=== PATIENT | male | born 1965 | race Caucasian/White ===

== ENCOUNTER 2020-04-30 16:48 | Emergency (ER) | payer OTHER, SELFPAY ==
[2020-04-30] VITALS (8 sets, daily range): BP systolic 148–187; BP diastolic 100–124; PULSE 71–109; RESP 12–25; TEMP 37.2; O2SAT 95–100; BMI 29.8
--- NOTE | 2020-04-30 16:57 | XRR_ITS ---
PROCEDURE INFORMATION: Exam: XR Chest, 1 View Exam date and time: 04/30/2020 6:52 PM Age: 54 years old Clinical indication: Pain; Patient HX: Chest pressure, lightheaded, shaky, dizzy, weak; Additional info: Cp TECHNIQUE: Imaging protocol: XR of the chest Views: 1 view. COMPARISON: No relevant prior studies available. FINDINGS: Lungs: Unremarkable. No consolidation. Pleural space: Unremarkable. No pleural effusion. No pneumothorax. Heart/Mediastinum: Unremarkable. No cardiomegaly. Bones/joints: Unremarkable. XR/XR chest 1V portable [id number] IMPRESSION: No acute findings.
--- NOTE | 2020-04-30 16:58 | ECG_ITS ---
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 Measurements Intervals [place] Rate: 75 P: 53 CT: 137 QRS: 52 QRSD: 95 T: 46 QT: 394 QTc: 442 Interpretive Statements SINUS RHYTHM LEFT VENTRICULAR HYPERTROPHY AND ST-T CHANGE [VOLTAGE CRITERIA PLUS ST/T ABNORMALITY] No previous ECG available for comparison Electronically Signed On 04-30-2020 19:48:16 LIFTS AND CRANES INSPECTOR by Mahendra Osorio M.D. [email or web address] [email or web address] [email or web address] hamilton hospital.[email or web address] Systems/store/[id number] f
[2020-04-30 17:22] LABS: Basophils % 0.4 %; Eosinophils % 0.3 %; Hematocrit 44.1 % (42.0-52.0); Hemoglobin 14.8 g/dL (11.7-16.6); Lymphocytes # 0.7 10^3/uL (0.8-4.8); Lymphocytes % 9.9 %; Mean Corpuscular HGB Conc 33.6 g/dL (30.0-36.0); Mean Corpuscular Hemoglobin 30.3 pg (28.0-34.0); Mean Corpuscular Volume 90.2 fL (80-94); Mean Platelet Volume 9.6 fL (7.4-10.4); Monocytes # 0.3 10^3/uL (0.2-0.9); Monocytes % 4.5 %; Neutrophils # 6.33 10^3/uL (1.8-7.7); Neutrophils % 84.6 %; Nucleated Red Blood Cells % 0 %; Platelet Count 286 10^3/cmm (130-400); Red Blood Count 4.89 10^6/uL (4.1-5.3); Red Cell Distribution Width 12.5 % (12.1-15.1); White Blood Count 7.5 10^3/uL (4.0-10.0)
[2020-04-30 17:37] LABS: Alanine Aminotransferase 32 U/L (0-41); Albumin Level 4.7 g/dL (3.5-5.2); Alkaline Phosphatase 44 IU/L (40-130); Anion Gap 13.5 (5-19); Aspartate Amino Transferase 37 U/L (0-40); Blood Urea Nitrogen 14 mg/dL (6-20); Calcium 9.8 mg/dL (8.5-10.5); Carbon Dioxide 28 mmol/L (22-29); Chloride 95 mmol/L (98-107); Globulin 2.8 g/dL (1.3-4.6); Glomerular Filtration Rate 88.6 mL/min (90-130); Glucose 147 mg/dL (65-115); Osmolality Calculated 279 mOsm/kg (285-295); Potassium 3.5 mmol/L (3.5-5.1); Sodium 133 mmol/L (136-145); Total Bilirubin 0.2 mg/dL (0.15-1.2); Total Protein 7.5 g/dL (6.6-8.7)
[2020-04-30 17:41] LABS: Troponin(5th) Baseline 6 ng/L (0-15)
--- NOTE | 2020-04-30 18:58 | ECG_ITS ---
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 Measurements Intervals [place] Rate: 68 P: 42 [place]: 123 QRS: 38 QRSD: 97 T: 43 QT: 424 QTc: 451 Interpretive Statements SINUS RHYTHM WITH SINUS ARRHYTHMIA POSSIBLE LEFT VENTRICULAR HYPERTROPHY [VOLTAGE CRITERIA PLUS LAE OR QRS WIDENING] Compared to ECG 04/30/2020 17:08:38 ST (T wave) deviation no longer present Electronically Signed On 04-30-2020 20:16:58 CLEARANCE COORDINATOR by Mahendra Osorio M.D. [email or web address] medical [email or web address] Officeuc west [facility].GPal/store/OM/[id number]
--- NOTE | 2020-04-30 19:12 | W.ED.CHESTPA ---
HPI - Chest Pain General: Chief Complaint: Chest Pain Stated Complaint: CHEST PRESSURE/DIZZY Time Seen by Provider: 04/30/20 18:47 History of Present Illness: MD complaint: chest pain Pertinent past history: other Onset (ago): hour(s) Timing of current episode: episodic Prior episodes: Yes (years ago) Onset: during rest Pain location: substernal and epigastric Pain radiation: none Quality: fullness Exacerbating factors: nothing Associated symptoms: Reports diaphoresis; Deny dyspnea, fever(s), leg edema, nausea, palpitations or vomiting Treatment prior to arrival: aspirin Review of Systems Const: Reports: diaphoresis; Denies: fever(s) Eyes: Denies: change in vision ENMT: Denies: odynophagia or sinus pain Card: Denies: chest pain, palpitations or irregular heart rhythm Resp: Denies: dyspnea, productive cough or non-productive cough GI: Denies: nausea or vomiting : Denies: difficulty urinating or hematuria Musc: Denies: neck pain or back pain Skin/Breast: Denies: rash Neuro: Denies: headache(s), dizziness or vertigo Physical Exam Const: GENERAL APPEARANCE: well developed ORIENTATION/CONSCIOUSNESS: Yes oriented to person, Yes oriented to place and Yes oriented to time HENMT: COMMON NORMALS: normocephalic, external ears normal and Normal external nose present HEAD & SCALP: normocephalic FACE & SINUS: normal facial exam NOSE: Normal external nose present and No nasal discharge present EXTERNAL EAR: Yes external ears normal Eye: COMMON NORMALS: Equal, round and reactive pupils present, EOMs intact bilaterally and conjunctivae normal EYELID: eyelids normal CONJUNCTIVA: Yes conjunctivae normal PUPIL: Yes Equal, round and reactive pupils present Neck/C-Spine: COMMON NORMALS: full ROM GENERAL: No tracheal deviation Chest: COMMONS NORMALS: normal inspection of the chest CHEST: No tenderness Resp: COMMON NORMALS: clear to auscultation bilaterally EFFORT & INSPECTION: No tachypneic, No respiratory distress, No retractions, No uses accessory muscles and No tracheal deviation AUSCULTATION: clear to auscultation bilaterally, no rhonchi, no wheezes and lung sounds not diminished Cardio: COMMON NORMALS: regular rate and regular rhythm RATE: regular rate RHYTHM: regular rhythm HEART SOUNDS: no murmurs PERIPHERAL PULSES: radial pulses present GI: INSPECTION: No abdominal distension AUSCULTATION: No Hyperactive bowel sounds present and No Hypoactive bowel sounds present PALPATION: No Guarding due to palpation present (GI) and No Rigid due to palpation PERCUSSION: no dullness to percussion and no tympanic to percussion Neuro: SENSORIUM/ORIENTATION: Yes oriented to person, Yes oriented to place and Yes oriented to time Psych: COMMON NORMALS: mental status grossly normal Skin: COMMON NORMALS: no rashes or lesions noted GENERAL SKIN EXAM: no rashes or lesions noted Course Vital Signs: Vital signs: Vital Signs Temperature 98.9 F 04/30/20 16:55 Pulse Rate 81 04/30/20 21:02 Respiratory Rate 18 04/30/20 21:02 Blood Pressure 176/105 04/30/20 21:02 Pulse Oximetry 95 04/30/20 21:02 MDM - Chest Pain MDM Narrative: Medical decision making narrative: 84-year-old male with epigastric fullness and discomfort with a episode of diaphoresis. He is not symptomatic currently. His white blood cell count 7.5. Hemoglobin is 15. First troponin is 6 and did not change at 2 hours. His EKG is a sinus rhythm with a normal axis, and probable mild LVH. There is a PVC. Chest x-ray is normal. He is hypertensive here. Current blood pressure is 148/109. He will be advised to take his pressure daily to twice daily and report numbers to his physician. Lab Data: Labs: Lab Results 04/30/20 04/30/20 04/30/20 Range/Units 17:10 17:10 17:10 WBC 7.5 (4.0-10.0) 10^3/ uL RBC 4.89 (4.1-5.3) 10^6/u L Hgb 14.8 (11.7-16.6) g/dL Hct 44.1 (42.0-52.0) % MCV 90.2 (80-94) fL MCH 30.3 (28.0-34.0) pg MCHC 33.6 (30.0-36.0) g/dL RDW 12.5 (12.1-15.1) % Plt Count 286 (130-400) 10^3/c mm MPV 9.6 (7.4-10.4) fL Neut % (Auto) 84.6 % Lymph % (Auto) 9.9 % [place] % (Auto) 4.5 % Eos % (Auto) 0.3 % Baso % (Auto) 0.4 % Neut # (Auto) 6.33 (1.8-7.7) 10^3/u L Lymph # (Auto) 0.7 L (0.8-4.8) 10^3/u L [place] # (Auto) 0.3 (0.2-0.9) 10^3/u L Eos # (Auto) 0.0 (0.0-0.8) 10^3/u L Baso # (Auto) 0.0 (0.0-0.1) 10^3/u L Nucleated RBC % (a uto) 0 % Nucleated RBCs # 0.0 /100WBC Sodium 133 L (136-145) mmol/L Potassium 3.5 (3.5-5.1) mmol/L Chloride 95 L (98-107) mmol/L Carbon Dioxide 28 (22-29) mmol/L Anion Gap 13.5 (5-19) BUN 14 (6-20) mg/dL Creatinine 0.9 (0.7-1.2) mg/dL GFR Calculation 88.6 L (90-130) mL/min Glucose 147 H (65-115) mg/dL Calculated Osmolal ity 279 L (285-295) mOsm/k g Calcium 9.8 (8.5-10.5) mg/dL Magnesium (1.7-2.3) mg/dL Total Bilirubin 0.2 (0.15-1.2) mg/dL AST 37 (0-40) U/L ALT 32 (0-41) U/L Alkaline Phosphata se 44 (40-130) IU/L Troponin T Baselin e 6 (0-15) ng/L Troponin T 120 Min [place] (0-15) ng/L Delta Troponin T (0-10) ABS# Total Protein 7.5 (6.6-8.7) g/dL Albumin 4.7 (3.5-5.2) g/dL Globulin 2.8 (1.3-4.6) g/dL 04/30/20 04/30/20 Range/Units 19:02 19:02 WBC (4.0-10.0) 10^3/ uL RBC (4.1-5.3) 10^6/u L Hgb (11.7-16.6) g/dL Hct (42.0-52.0) % MCV (80-94) fL MCH (28.0-34.0) pg MCHC (30.0-36.0) g/dL RDW (12.1-15.1) % Plt Count (130-400) 10^3/c mm MPV (7.4-10.4) fL Neut % (Auto) % Lymph % (Auto) % [place] % (Auto) % Eos % (Auto) % Baso % (Auto) % Neut # (Auto) (1.8-7.7) 10^3/u L Lymph # (Auto) (0.8-4.8) 10^3/u L [place] # (Auto) (0.2-0.9) 10^3/u L Eos # (Auto) (0.0-0.8) 10^3/u L Baso # (Auto) (0.0-0.1) 10^3/u L Nucleated RBC % (a uto) % Nucleated RBCs # /100WBC Sodium (136-145) mmol/L Potassium (3.5-5.1) mmol/L Chloride (98-107) mmol/L Carbon Dioxide (22-29) mmol/L Anion Gap (5-19) BUN (6-20) mg/dL Creatinine (0.7-1.2) mg/dL GFR Calculation (90-130) mL/min Glucose (65-115) mg/dL Calculated Osmolal ity (285-295) mOsm/k g Calcium (8.5-10.5) mg/dL Magnesium 2.2 (1.7-2.3) mg/dL Total Bilirubin (0.15-1.2) mg/dL AST (0-40) U/L ALT (0-41) U/L Alkaline Phosphata se (40-130) IU/L Troponin T Baselin e (0-15) ng/L Troponin T 120 Min [place] 6.00 (0-15) ng/L Delta Troponin T 0 (0-10) ABS# Total Protein (6.6-8.7) g/dL Albumin (3.5-5.2) g/dL Globulin (1.3-4.6) g/dL Discharge Plan Discharge Patient Disposition: Home Clinical Impression: Chest pain Qualifiers: Chest pain type: unspecified Qualified Code(s): R07.9 - Chest pain, unspecified Hypertension Qualifiers: Hypertension type: unspecified Qualified Code(s): I10 - Essential (primary) hypertension Condition: Stable Prescriptions: No Action omeprazole 20 mg capsule,delayed release(DR/EC) 20 mg PO BID RF: 0 Gas-X 80 mg Tablet,Chewable 160 mg PO PRN RF: 0 olmesartan 40 mg tablet 40 mg PO DAILY RF: 0 hydrochlorothiazide 12.5 mg tablet 12.5 mg PO DAILY RF: 0 Excedrin Tab 2 tab PO PRN RF: 0 aspirin 1 tab PO DAILY RF: 0 fexofenadine 1 tab PO DAILY RF: 0 meclizine 1 tab PO PRN RF: 0 Discharge Orders: Discharge Order (Routine); Ordered 04/30/20 Ordered By: Yury Canchola Referrals: Farrah Matson APN [Primary Care Provider] - 4-7 days Discharge Diet: Advance as tolerated Discharge Activity: Increase activity as tolerated Patient Instructions: Chest Pain (ED), Hypertension (ED) Activity Restrictions/Additional Instructions: Check your blood pressure twice daily, and report numbers to your physician. Your blood pressure may require treatment if it remains high. Return for worsening chest pain, shortness of breath, syncope or passing out, any other concerning symptoms. Coding Level of Care Code ED It Risk And Assurance Manager for Mike Fwd Exam Comprehensive
[2020-04-30 19:31] LABS: Troponin 5 2HR Delta 0 ABS# (0-10)
[2020-04-30 20:47] LABS: Magnesium 2.2 mg/dL (1.7-2.3)
== END 2020-04-30 21:03 | disposition home or self-care (01) ==
PROVIDERS: Emergency Medicine; Emergency Provider Emergency Medicine; PCP Nurse Practitioner Family
DX: R07.9 Chest pain, unspecified (principal); I10 Essential (primary) hypertension; Z79.82 Long term (current) use of aspirin
CPT/HCPCS: 12345; 36415; 71045; 80053; 83735; 84484; 85025; 93005; 99281; 99283

== ENCOUNTER 2020-07-20 12:39 | Outpatient (CLI) | payer OTHER, SELFPAY ==
--- NOTE | 2020-07-20 12:45 | ECG_ITS ---
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 Interpretive Statements NAME OF STUDY: TREADMILL STRESS ECHOCARDIOGRAM INDICATION: Chest Pain PROCEDURE: At the baseline, the patient's blood pressure was 152/90 with a heart rate of 84. The baseline electrocardiogram showed normal sinus rhythm with normal ST-Ts.. The patient exercised for 6 minutes and 55 seconds on a standard Rudy protocol. Patient attained a maximum heart rate of 160 beats per minute(95% of the maximum predicted heart rate) with a blood pressure at the peak exercise of 199/100 mm Hg. The EKG at the peak exercise revealed no significant changes. Patient did not have any chest pain or any significant EKG changes with the exercise During the recovery phase, there were no new changes. Blood pressure at the end of the recovery phase was 124/84 mm Hg with a heart rate of 96 per minute. Echocardiographic pictures were taken at the baseline, immediately following the peak exercise and during the recovery phase. CONCLUSION: 1. Normal EKG response to treadmill exercise 2. No exercise-induced chest pain or cardiac arrhythmia. Hypertensive response to exercise 3. Fair exercise tolerance, attained a maximum of 1.2 METs 4. Please see separate report for the echocardiographic response to exercise. Electronically Signed On 07-29-2020 9:45:38 LIEUTENANT SHIFT SUPERVISOR by Hailey Alexander M.D. [id number]
[2020-07-20 12:47] VITALS: BMI 27.6
[2020-07-20 13:29] VITALS: BP 124/84; PULSE 96
--- NOTE | 2020-07-20 13:45 | USCV_ITS ---
Stress Echo Jesus Malone Age: 54 Gender: M : 1965 Exam Date: 07/20/2020 13:03 Ordering Phys: Hailey Alexander MD ([email or web address]) Technologist: Anatoliy Cummings [place] [facility] [place]: chest pain Rhythm: Sinus Patient History: Chest pain Cardiac Medications: Medications in past 24 hours: Contrast: Stress Results Protocol: Rudy Total dose(mL): Exercise Duration (min:sec): 6:55 METS: 10.2 Resting HR: 84 Resting BP: 152 / 90 Peak HR: 160 Peak BP: 199 / 102 Max Predicted HR: 168 95 % Max Predicted HR Target HR: 143 Double Product: 00154 Stress Summary: The patient's target heart rate was achieved BP Response: Normal Reason for Termination: General/leg fatigue Cardiac Symptoms: None ECG Analysis Resting ECG: Please see separate report Stress ECG: Please see separate report Arrhythmia: Please see separate report MEASUREMENTS (Male/Female) Normal Values FINDINGS To nuclear was of normal size. Mild concentric left renal hypertrophy. Segmental wall motion analysis revealing no gross wall motion normalities. Aortic root was of normal size. The aortic and the mitral valve were found to have no significant stenosis. With the peak exercise, there was good augmentation of all the segments with no exercise-induced wall motion normalities. During the recovery phase, there was no new wall motion normalities. CONCLUSIONS Normal echocardiogram response to treadmill exercise. No significant coronary ischemia, based on the above findings Dr Hailey Alexander MD FAC (Electronically Signed) Final Date: 21 July 2020 09:48 S
== END 2020-07-20 12:40 | disposition home or self-care (01) ==
PROVIDERS: PCP Nurse Practitioner Family; Visit Provider Internal Medicine Cardiovascular Disease
DX: R07.89 Other chest pain (principal)
CPT/HCPCS: 93017; 93350

== ENCOUNTER 2021-09-14 14:20 | Inpatient (IN) | payer OTHER, SELFPAY ==
[2021-09-14] VITALS (9 sets, daily range): BP systolic 131–204; BP diastolic 93–126; PULSE 65–95; RESP 14–25; TEMP 36.4–36.6; O2SAT 93–100; BMI 27.9
--- NOTE | 2021-09-14 14:51 | XR_ITS ---
WS: [id number] Exam: XR chest 1V portable [id number] Date/Time of Exam: 09/14/2021 3:01 PM Reason For Exam: cp Comparison 04/30/2020. Findings: The lungs are clear and fully expanded. Costophrenic angles are sharp. No infiltrates. Bronchovascula r relief appears normal. Cardiac silhouette is unremarkable. Bony elements are intact. XR/XR chest 1V portable [id number] IMPRESSION: Unremarkable chest radiograph.
--- NOTE | 2021-09-14 14:52 | ECG_ITS ---
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 Measurements Intervals [place] Rate: 64 P: 68 ME: 129 QRS: 74 QRSD: 102 T: 77 QT: 434 QTc: 449 Interpretive Statements SINUS RHYTHM LEFT VENTRICULAR HYPERTROPHY AND ST-T CHANGE [VOLTAGE CRITERIA PLUS ST/T ABNORMALITY] Compared to ECG 04/30/2020 19:11:37 ST (T wave) deviation now present Sinus arrhythmia no longer present Electronically Signed On 09-14-2021 17:10:38 CDT by Gaston Kruse M.D. [email or web address] [email or web address] county memorial hospitalTouchBase Technologiesriverview health institute.Cliptone/store/[id number]
--- NOTE | 2021-09-14 15:10 | ED_ITS ---
Documented by User: CHRISTINA Almazan 09/15/21 11:55 HPI - Chest Pain General: Chief Complaint: Chest Pain Stated Complaint: Chest Pain Time Seen by Provider: 09/14/21 14:51 History of Present Illness: Patient is a 55-year-old male comes to the ED with chest pain. Chest pain occurred around 10 AM today while at rest. He had just finished eating some breakfast and approximately 30 minutes later he developed the chest pain. He described it as a burning and aching pain that was in the middle of his chest. He took some Gas-X tablets and belched a little bit and his symptoms improved and about a half an hour. Then a couple hours later he had another episode of chest pain at rest, but this time he had not eaten anything recently preceding the symptoms. Pain lasted for about an hour. Chest pain resolved before coming to the ED. pt took dose of excedrin this morming. He has had chest pain like this before, but this time it just lasted longer. Has a history of acid reflux and takes omeprazole 20 mg daily. he saw a food and beverage checker a year ago and had a stress test done and everything came back normal. Associated symptoms: Deny abdominal pain, dyspnea, fever(s), nausea, palpitations or vomiting Review of Systems Const: Denies: fever(s), chills or fatigue Eyes: Denies: change in vision or eye discomfort ENMT: Denies: throat pain, odynophagia, nasal discharge or nasal congestion Card: Reports: chest pain; Denies: palpitations, edema, swelling of feet/ankles, dyspnea on exertion or orthopnea Resp: Denies: dyspnea, productive cough or non-productive cough GI: Denies: abdominal pain, nausea, vomiting, diarrhea, constipation or hematochezia : Denies: flank pain, difficulty urinating, dysuria or hematuria Musc: Denies: neck pain, back pain or extremity swelling Skin/Breast: Denies: rash or new lesions Neuro: Denies: headache(s), numbness in extremities or weakness in extremities PFSH ED PFSH: Medical History Atypical chest pain The EKG done today, 06/23/2019 revealed sinus rhythm with some nonspecific ST-T changes in the inferolateral leads. Otherwise unremarkable. Benign essential HTN History of hypertension Hypokalemia Hypokalemia Near syncope Vertigo Family History Father CAD (coronary artery disease) Grandmother CAD (coronary artery disease) Dementia Diabetes Grandfather Cancer Son Diabetes Denies family history of Clotting disorder Chronic kidney disease (CKD) Suicide Anesthesia complication Bleeding disorder Lung disease Stroke Social History Smoking and tobacco status: never smoked Alcohol intake: current Alcohol intake frequency: holidays/special occasions only Alcohol type: beer Lives independently: Yes Marital status: Physical Exam Const: COMMON NORMALS: no acute distress, patient oriented x3 and alert GENERAL APPEARANCE: cooperative and comfortable HENMT: COMMON NORMALS: normocephalic HEAD & SCALP: normocephalic MOUTH: Normal oral and palatal mucosa present THROAT: posterior oropharynx normal and uvula midline Eye: GENERAL EYE: appearance normal, both eyes and all related structures Neck/C-Spine: COMMON NORMALS: supple GENERAL: Yes normal visual inspection Resp: COMMON NORMALS: normal respiratory effort, No retractions, No use of accessory muscles and clear to auscultation bilaterally AUSCULTATION: clear to auscultation bilaterally Cardio: COMMON NORMALS: regular rate, regular rhythm, S1 normal heart sound present, S2 normal heart sound present, No gallops present (Cardio), No clicks present (Cardio), No murmurs present (Cardio) and Peripheral pulses 2+ throughout RATE: regular rate RHYTHM: regular rhythm HEART SOUNDS: S1 normal heart sound present and S2 normal heart sound present PERIPHERAL PULSES: Peripheral pulses 2+ throughout GI: COMMON NORMALS: Normal to inspection, nondistended, normoactive bowel sounds present, Soft to palpation, non-tender and no masses PALPATION: Yes Soft to palpation : COMMON NORMALS: Yes no CVA tenderness BLADDER/KIDNEY EXAM: Yes no CVA tenderness Back/Pelvis: COMMON NORMALS: no CVA tenderness Extremity: COMMON NORMALS: normal to inspection and no pedal edema Neuro: COMMON NORMALS: patient oriented x3 and moves all extremities SENSORIUM/ORIENTATION: Yes alert Skin: GENERAL SKIN EXAM: dry skin Course Vital Signs: Vital signs: Vital Signs Temperature 98.2 F 09/17/21 11:40 Pulse Rate 62 09/17/21 12:00 Respiratory Rate 14 09/17/21 12:00 Blood Pressure 150/90 09/17/21 12:00 Pulse Oximetry 94 09/17/21 12:00 [facility] - Chest Pain Medical Decision Making Received patient from CHRISTINA Almazan patient episode of anxiety and palpitations around 1750. EKG was done showed PVCs some changes and then repeat rhythm strip showed that rhythm is back to normal. Patient was given Ativan 1 mg IV to help with anxiety that he was complained about. Reviewed EKG and patient's signs sym ptoms vitals with Dr. Delacruz 0203. Patient had an elevated troponin baseline troponin 36. 2-hour troponin of 50.74. Patient diagnosed with non-STEMI GA. Patient will be admitted and placed on observation. Lab Data I reviewed the patient's lab results. : 09/17/21 03:33 09/17/21 03:33 Radiology Impressions Chest X-Ray 09/14/21 14:51 IMPRESSION: Unremarkable chest radiograph. Laboratory Results WBC 9.2 10^3/uL (4.0-10.0) 09/15/21 03:39 RBC 4.91 10^6/uL (4.1-5.3) 09/15/21 03:39 Hgb 15.0 g/dL (11.7-16.6) 09/15/21 03:39 Hct 44.4 % (42.0-52.0) 09/15/21 03:39 MCV 90.4 fl (80-94) 09/15/21 03:39 MCH 30.5 pg (28.0-34.0) 09/15/21 03:39 MCHC 33.8 g/dL (30.0-36.0) 09/15/21 03:39 RDW 12.2 % (12.1-15.1) 09/15/21 03:39 Plt Count 296 10^3/cmm (130-400) 09/15/21 03:39 MPV 9.9 fL (7.4-10.4) 09/15/21 03:39 Neut % (Auto) 72.8 % 09/15/21 03:39 Lymph % (Auto) 16.7 % 09/15/21 03:39 Hickman % (Auto) 9.4 % 09/15/21 03:39 Eos % (Auto) 0.4 % 09/15/21 03:39 Baso % (Auto) 0.4 % 09/15/21 03:39 Neut # (Auto) 6.72 10^3/uL (1.8-7.7) 09/15/21 03:39 Lymph # (Auto) 1.5 10^3/uL (0.8-4.8) 09/15/21 03:39 Hickman # (Auto) 0.9 10^3/uL (0.2-0.9) 09/15/21 03:39 Eos # (Auto) 0.0 10^3/uL (0.0-0.8) 09/15/21 03:39 Baso # (Auto) 0.0 10^3/uL (0.0-0.1) 09/15/21 03:39 Nucleated RBC % (auto) 0 % 09/15/21 03:39 Nucleated RBCs # 0.0 /100WBC 09/15/21 03:39 Sodium 136 mmol/L (136-145) 09/15/21 03:39 Potassium 3.7 mmol/L (3.5-5.1) 09/15/21 03:39 Chloride 98 mmol/L (98-107) 09/15/21 03:39 Carbon Dioxide 26 mmol/L (22-29) 09/15/21 03:39 Anion Gap 15.7 (5-19) 09/15/21 03:39 BUN 11 mg/dL (6-20) 09/15/21 03:39 Creatinine 0.9 mg/dL (0.7-1.2) 09/15/21 03:39 GFR Calculation 88.3 mL/min (90-130) L 09/15/21 03:39 Glucose 97 mg/dL (65-115) 09/15/21 03:39 Calculated Osmolality 281 mOsm/kg (285-295) L 09/15/21 03:39 Calcium 10.2 mg/dL (8.5-10.5) 09/15/21 03:39 Magnesium 2.0 mg/dL (1.7-2.3) 09/14/21 21:59 Total Bilirubin 0.7 mg/dL (0.15-1.2) 09/15/21 03:39 AST 102 U/L (0-40) H 09/15/21 03:39 ALT 30 U/L (0-41) 09/15/21 03:39 Alkaline Phosphatase 46 IU/L (40-130) 09/15/21 03:39 Troponin T Baseline 36 ng/L (0-15) H 09/14/21 15:55 Troponin T 120 Minute 50.74 ng/L (0-15) H 09/14/21 17:50 Delta Troponin T 14.74 ABS# (0-10) H* 09/14/21 17:50 Troponin T Hi Sens 6Hr 178.4 ng/L (0-15) H 09/14/21 21:59 Troponin T Hi Sens 6Hr Delta 142.4 ng/L (0-12) H* 09/14/21 21:59 NT-Pro-B Natriuret Pep 98 pg/mL (0-125) 09/14/21 15:55 Total Protein 7.2 g/dL (6.6-8.7) 09/15/21 03:39 Albumin 4.6 g/dL (3.5-5.2) 09/15/21 03:39 Globulin 2.6 g/dL (1.3-4.6) 09/15/21 03:39 Triglycerides 102 mg/dL (0-150) 09/14/21 21:59 Cholesterol 248 mg/dL (0-200) H 09/14/21 21:59 LDL Cholesterol, Calc 151 mg/dL (50-129) H 09/14/21 21:59 HDL Cholesterol 77 mg/dL (60-100) 09/14/21 21:59 LDL/HDL Ratio 1.96 RATIO (0.00-3.22) 09/14/21 21:59 Cholesterol/HDL Ratio 3.22 mg/dL (1.0-5.00) 09/14/21 21:59 Lipase 33 U/L (13-60) 09/14/21 15:55 TSH 1.05 uIU/mL (0.27-4.20) 09/14/21 21:59 EKG Data EKG 1: EKG interpretation date: 09/14/21 EKG interpretation time: 14:43 Interpretation: Sinus rhythm, 61 bpm, no ST segment elevation or depression seen. EKG 2: EKG interpretation date: 09/14/21 EKG interpretation time: 16:43 Interpretation: Sinus rhythm, 67 bpm, moderate ST depression noted in leads V3 and V4. Dr. Juares reviewed EKG. Discharge Plan Discharge Patient Disposition: Placed in Observation Admit Provider: Gurdeep Hernandez Clinical Impression: Non-ST elevation (NSTEMI) myocardial infarction, Chest pain Discharge Diet: Cardiac Discharge Activity: Resume usual activity Sign Out Sign Out Data: Patient Sign Out occurred on 09/14/21 at 19:36. Patient's care was discussed, and care was transferred from to Alvaro Delacruz MD. Post-Handoff Eval: Patient was discussed with CHRISTINA Almazan. I received patient care handoff and personally saw and evaluated patient regarding performed panda portions of E/M. I reviewed documentation and agree as above. Somewhat atypical history however given delta troponin patient's records before further cardiac testing. 10 point review systems was negative except as noted above. I agree with physical exam documentation. ASA given. Labs, imaging, and EKGs reviewed and personally interpretted by me. I discussed results of ED evaluation with patient and he was agreeable to admission. Case discussed with Dr Hernandez of the hospital service who was agreeable to the patient. Patient made it without clinical duration or significant events. Alvaro Delacruz MD Emergency Medicine Coding Level of Care Code ED Ambulance Driver Paramedic for Chg Fwd Exam Comprehensive Documented by User: AJIT Albrecht 09/14/21 18:14 HPI - Chest Pain General: Chief Complaint: Chest Pain Stated Complaint: Chest Pain Time Seen by Provider: 09/14/21 14:51 PFSH ED PFSH: Medical History Atypical chest pain The EKG done today, 06/23/2019 revealed sinus rhythm with some nonspecific ST-T changes in the inferolateral leads. Otherwise unremarkable. Benign essential HTN History of hypertension Hypokalemia Hypokalemia Near syncope Vertigo Family History Father CAD (coronary artery disease) Grandmother CAD (coronary artery disease) Dementia Diabetes Grandfather Cancer Son Diabetes Denies family history of Clotting disorder Chronic kidney disease (CKD) Suicide Anesthesia complication Bleeding disorder Lung disease Stroke Social History Smoking and tobacco status: never smoked Alcohol intake: current Alcohol intake frequency: holidays/special occasions only Alcohol type: beer Lives independently: Yes Marital status: Course Vital Signs: Vital signs: Vital Signs Temperature 98.2 F 09/17/21 11:40 Pulse Rate 62 09/17/21 12:00 Respiratory Rate 14 09/17/21 12:00 Blood Pressure 150/90 09/17/21 12:00 Pulse Oximetry 94 09/17/21 12:00 MDM - Chest Pain Medical Decision Making Received patient from CHRISTINA Almazan patient episode of anxiety and palpitations around 1750. EKG was done showed PVCs some changes and then repeat rhythm strip showed that rhythm is back to normal. Patient was given Ativan 1 mg IV to help with anxiety that he was complained about. Reviewed EKG and patient's signs symptoms vitals with Dr. Delacruz [id number]. Lab Data : 09/17/21 03:33 09/17/21 03:33 Radiology Impressions Chest X-Ray 09/14/21 14:51 IMPRESSION: Unremarkable chest radiograph. Laboratory Results WBC 9.2 10^3/uL (4.0-10.0) 09/15/21 03:39 RBC 4.91 10^6/uL (4.1-5.3) 09/15/21 03:39 Hgb 15.0 g/dL (11.7-16.6) 09/15/21 03:39 Hct 44.4 % (42.0-52.0) 09/15/21 03:39 MCV 90.4 fl (80-94) 09/15/21 03:39 MCH 30.5 pg (28.0-34.0) 09/15/21 03:39 MCHC 33.8 g/dL (30.0-36.0) 09/15/21 03:39 RDW 12.2 % (12.1-15.1) 09/15/21 03:39 Plt Count 296 10^3/cmm (130-400) 09/15/21 03:39 MPV 9.9 fL (7.4-10.4) 09/15/21 03:39 Neut % (Auto) 72.8 % 09/15/21 03:39 Lymph % (Auto) 16.7 % 09/15/21 03:39 Hickman % (Auto) 9.4 % 09/15/21 03:39 Eos % (Auto) 0.4 % 09/15/21 03:39 Baso % (Auto) 0.4 % 09/15/21 03:39 Neut # (Auto) 6.72 10^3/uL (1.8-7.7) 09/15/21 03:39 Lymph # (Auto) 1.5 10^3/uL (0.8-4.8) 09/15/21 03:39 Hickman # (Auto) 0.9 10^3/uL (0.2-0.9) 09/15/21 03:39 Eos # (Auto) 0.0 10^3/uL (0.0-0.8) 09/15/21 03:39 Baso # (Auto) 0.0 10^3/uL (0.0-0.1) 09/15/21 03:39 Nucleated RBC % (auto) 0 % 09/15/21 03:39 Nucleated RBCs # 0.0 /100WBC 09/15/21 03:39 Sodium 136 mmol/L (136-145) 09/15/21 03:39 Potassium 3.7 mmol/L (3.5-5.1) 09/15/21 03:39 Chloride 98 mmol/L (98-107) 09/15/21 03:39 Carbon Dioxide 26 mmol/L (22-29) 09/15/21 03:39 Anion Gap 15.7 (5-19) 09/15/21 03:39 BUN 11 mg/dL (6-20) 09/15/21 03:39 Creatinine 0.9 mg/dL (0.7-1.2) 09/15/21 03:39 GFR Calculation 88.3 mL/min (90-130) L 09/15/21 03:39 Glucose 97 mg/dL (65-115) 09/15/21 03:39 Calculated Osmolality 281 mOsm/kg (285-295) L 09/15/21 03:39 Calcium 10.2 mg/dL (8.5-10.5) 09/15/21 03:39 Magnesium 2.0 mg/dL (1.7-2.3) 09/14/21 21:59 Total Bilirubin 0.7 mg/dL (0.15-1.2) 09/15/21 03:39 AST 102 U/L (0-40) H 09/15/21 03:39 ALT 30 U/L (0-41) 09/15/21 03:39 Alkaline Phosphatase 46 IU/L (40-130) 09/15/21 03:39 Troponin T Baseline 36 ng/L (0-15) H 09/14/21 15:55 Troponin T 120 Minute 50.74 ng/L (0-15) H 09/14/21 17:50 Delta Troponin T 14.74 ABS# (0-10) H* 09/14/21 17:50 Troponin T Hi Sens 6Hr 178.4 ng/L (0-15) H 09/14/21 21:59 Troponin T Hi Sens 6Hr Delta 142.4 ng/L (0-12) H* 09/14/21 21:59 NT-Pro-B Natriuret Pep 98 pg/mL (0-125) 09/14/21 15:55 Total Protein 7.2 g/dL (6.6-8.7) 09/15/21 03:39 Albumin 4.6 g/dL (3.5-5.2) 09/15/21 03:39 Globulin 2.6 g/dL (1.3-4.6) 09/15/21 03:39 Triglycerides 102 mg/dL (0-150) 09/14/21 21:59 Cholesterol 248 mg/dL (0-200) H 09/14/21 21:59 LDL Cholesterol, Calc 151 mg/dL (50-129) H 09/14/21 21:59 HDL Cholesterol 77 mg/dL (60-100) 09/14/21 21:59 LDL/HDL Ratio 1.96 RATIO (0.00-3.22) 09/14/21 21:59 Cholesterol/HDL Ratio 3.22 mg/dL (1.0-5.00) 09/14/21 21:59 Lipase 33 U/L (13-60) 09/14/21 15:55 TSH 1.05 uIU/mL (0.27-4.20) 09/14/21 21:59 Discharge Plan Discharge Patient Disposition: Placed in Observation Admit Provider: Gurdeep Hernandez Clinical Impression: Non-ST elevation (NSTEMI) myocardial infarction, Chest pain Discharge Diet: Cardiac Discharge Activity: Resume usual activity Sign Out Sign Out Data: Patient Sign Out occurred on 09/14/21 at 19:36. Patient's care was discussed, and care was transferred from to Alvaro Delacruz MD. Post-Handoff Eval: Patient was discussed with CHRISTINA Almazan. I received patient care handoff and personally saw and evaluated patient regarding performed panda portions of E/M. I reviewed documentation and agree as above. Somewhat atypical history however given delta troponin patient's records before further cardiac testing. 10 point review systems was negative except as noted above. I agree with physical exam documentation. ASA given. Labs, imaging, and EKGs reviewed and personally interpretted by me. I discussed results of ED evaluation with patient and he was agreeable to admission. Case discussed with Dr Hernandez of the hospital service who was agreeable to the patient. Patient made it without clinical duration or significant events. Alvaro Delacruz MD Emergency Medicine Coding Level of Care Code ED Ambulance Driver Paramedic for Chg Fwd Exam Comprehensive Documented by User: Alvaro Delacruz MD 09/20/21 18:28 HPI - Chest Pain General: Chief Complaint: Chest Pain Stated Complaint: Chest Pain Time Seen by Provider: 09/14/21 14:51 History of Present Illness: Onset (ago): hour(s) Timing of current episode: episodic Onset: during rest Pain location: substernal Severity: moderate Quality: aching [facility] ED PFSH: Medical History Atypical chest pain The EKG done today, 06/23/2019 revealed sinus rhythm with some nonspecific ST-T changes in the inferolateral leads. Otherwise unremarkable. Benign essential HTN History of hypertension Hypokalemia Hypokalemia Near syncope Vertigo Family History Father CAD (coronary artery disease) Grandmother CAD (coronary artery disease) Dementia Diabetes Grandfather Cancer Son Diabetes Denies family history of Clotting disorder Chronic kidney disease (CKD) Suicide Anesthesia complication Bleeding disorder Lung disease Stroke Social History Smoking and tobacco status: never smoked Alcohol intake: current Alcohol intake frequency: holidays/special occasions only Alcohol type: beer Lives independently: Yes Marital status: Course Vital Signs: Vital signs: Vital Signs Temperature 98.2 F 09/17/21 11:40 Pulse Rate 62 09/17/21 12:00 Respiratory Rate 14 09/17/21 12:00 Blood Pressure 150/90 09/17/21 12:00 Pulse Oximetry 94 09/17/21 12:00 MDM - Chest Pain Lab Data : 09/17/21 03:33 09/17/21 03:33 Radiology Impressions Chest X-Ray 09/14/21 14:51 IMPRESSION: Unremarkable chest radiograph. Laboratory Results WBC 9.2 10^3/uL (4.0-10.0) 09/15/21 03:39 RBC 4.91 10^6/uL (4.1-5.3) 09/15/21 03:39 Hgb 15.0 g/dL (11.7-16.6) 09/15/21 03:39 Hct 44.4 % (42.0-52.0) 09/15/21 03:39 MCV 90.4 fl (80-94) 09/15/21 03:39 MCH 30.5 pg (28.0-34.0) 09/15/21 03:39 MCHC 33.8 g/dL (30.0-36.0) 09/15/21 03:39 RDW 12.2 % (12.1-15.1) 09/15/21 03:39 Plt Count 296 10^3/cmm (130-400) 09/15/21 03:39 MPV 9.9 fL (7.4-10.4) 09/15/21 03:39 Neut % (Auto) 72.8 % 09/15/21 03:39 Lymph % (Auto) 16.7 % 09/15/21 03:39 Hickman % (Auto) 9.4 % 09/15/21 03:39 Eos % (Auto) 0.4 % 09/15/21 03:39 Baso % (Auto) 0.4 % 09/15/21 03:39 Neut # (Auto) 6.72 10^3/uL (1.8-7.7) 09/15/21 03:39 Lymph # (Auto) 1.5 10^3/uL (0.8-4.8) 09/15/21 03:39 Hickman # (Auto) 0.9 10^3/uL (0.2-0.9) 09/15/21 03:39 Eos # (Auto) 0.0 10^3/uL (0.0-0.8) 09/15/21 03:39 Baso # (Auto) 0.0 10^3/uL (0.0-0.1) 09/15/21 03:39 Nucleated RBC % (auto) 0 % 09/15/21 03:39 Nucleated RBCs # 0.0 /100WBC 09/15/21 03:39 Sodium 136 mmol/L (136-145) 09/15/21 03:39 Potassium 3.7 mmol/L (3.5-5.1) 09/15/21 03:39 Chloride 98 mmol/L (98-107) 09/15/21 03:39 Carbon Dioxide 26 mmol/L (22-29) 09/15/21 03:39 Anion Gap 15.7 (5-19) 09/15/21 03:39 BUN 11 mg/dL (6-20) 09/15/21 03:39 Creatinine 0.9 mg/dL (0.7-1.2) 09/15/21 03:39 GFR Calculation 88.3 mL/min (90-130) L 09/15/21 03:39 Glucose 97 mg/dL (65-115) 09/15/21 03:39 Calculated Osmolality 281 mOsm/kg (285-295) L 09/15/21 03:39 Calcium 10.2 mg/dL (8.5-10.5) 09/15/21 03:39 Magnesium 2.0 mg/dL (1.7-2.3) 09/14/21 21:59 Total Bilirubin 0.7 mg/dL (0.15-1.2) 09/15/21 03:39 AST 102 U/L (0-40) H 09/15/21 03:39 ALT 30 U/L (0-41) 09/15/21 03:39 Alkaline Phosphatase 46 IU/L (40-130) 09/15/21 03:39 Troponin T Baseline 36 ng/L (0-15) H 09/14/21 15:55 Troponin T 120 Minute 50.74 ng/L (0-15) H 09/14/21 17:50 Delta Troponin T 14.74 ABS# (0-10) H* 09/14/21 17:50 Troponin T Hi Sens 6Hr 178.4 ng/L (0-15) H 09/14/21 21:59 Troponin T Hi Sens 6Hr Delta 142.4 ng/L (0-12) H* 09/14/21 21:59 NT-Pro-B Natriuret Pep 98 pg/mL (0-125) 09/14/21 15:55 Total Protein 7.2 g/dL (6.6-8.7) 09/15/21 03:39 Albumin 4.6 g/dL (3.5-5.2) 09/15/21 03:39 Globulin 2.6 g/dL (1.3-4.6) 09/15/21 03:39 Triglycerides 102 mg/dL (0-150) 09/14/21 21:59 Cholesterol 248 mg/dL (0-200) H 09/14/21 21:59 LDL Cholesterol, Calc 151 mg/dL (50-129) H 09/14/21 21:59 HDL Cholesterol 77 mg/dL (60-100) 09/14/21 21:59 LDL/HDL Ratio 1.96 RATIO (0.00-3.22) 09/14/21 21: Cholesterol/HDL Ratio 3.22 mg/dL (1.0-5.00) 09/14/21 21:59 Lipase 33 U/L (13-60) 09/14/21 15:55 TSH 1.05 uIU/mL (0.27-4.20) 09/14/21 21:59 Discharge Plan Discharge Patient Disposition: Placed in Observation Admit Provider: Gurdeep Hernandez Clinical Impression: Non-ST elevation (NSTEMI) myocardial infarction, Chest pain Discharge Diet: Cardiac Discharge Activity: Resume usual activity Sign Out Sign Out Data: Patient Sign Out occurred on 09/14/21 at 19:36. Patient's care was discussed, and care was transferred from to Alvaro Delacruz MD. Post-Handoff Eval: Patient was discussed with CHRISTINA Almazan. I received patient care handoff and personally saw and evaluated patient regarding performed panda portions of E/M. I reviewed documentation and agree as above. Somewhat atypical history however given delta troponin patient's records before further cardiac testing. 10 point review systems was negative except as noted above. I agree with physical exam documentation. ASA given. Labs, imaging, and EKGs reviewed and personally int erpretted by me. I discussed results of ED evaluation with patient and he was agreeable to admission. Case discussed with Dr Hernandez of the hospital service who was agreeable to the patient. Patient made it without clinical duration or significant events. Alvaro Delacruz MD Emergency Medicine Coding Level of Care Code ED Ambulance Driver Paramedic for Chg Fwd Exam Comprehensive
[2021-09-14 16:17] LABS: Basophils % 0.3 %; Eosinophils % 0.1 %; Hematocrit 45.9 % (42.0-52.0); Hemoglobin 15.4 g/dL (11.7-16.6); Lymphocytes # 1.3 10^3/uL (0.8-4.8); Lymphocytes % 13.4 %; Mean Corpuscular HGB Conc 33.6 g/dL (30.0-36.0); Mean Corpuscular Hemoglobin 30.2 pg (28.0-34.0); Monocytes # 0.5 10^3/uL (0.2-0.9); Neutrophils # 7.91 10^3/uL (1.8-7.7); Neutrophils % 80.9 %; Nucleated Red Blood Cells % 0 %; Platelet Count 288 10^3/cmm (130-400); White Blood Count 9.8 10^3/uL (4.0-10.0)
[2021-09-14 16:29] LABS: Troponin(5th) Baseline 36 ng/L (0-15)
[2021-09-14 16:36] LABS: Alanine Aminotransferase 24 U/L (0-41); Albumin Level 4.9 g/dL (3.5-5.2); Alkaline Phosphatase 49 IU/L (40-130); Anion Gap 13.7 (5-19); Aspartate Amino Transferase 23 U/L (0-40); Blood Urea Nitrogen 13 mg/dL (6-20); Calcium 10.3 mg/dL (8.5-10.5); Carbon Dioxide 26 mmol/L (22-29); Chloride 95 mmol/L (98-107); Globulin 2.8 g/dL (1.3-4.6); Glomerular Filtration Rate 78.2 mL/min (90-130); Glucose 131 mg/dL (65-115); Lipase 33 U/L (13-60); NT Pro B Type Natriuretic Pept 98 pg/mL (0-125); Osmolality Calculated 274 mOsm/kg (285-295); Potassium 3.7 mmol/L (3.5-5.1); Sodium 131 mmol/L (136-145); Total Bilirubin 0.5 mg/dL (0.15-1.2); Total Protein 7.7 g/dL (6.6-8.7)
--- NOTE | 2021-09-14 16:52 | ECG_ITS ---
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 Measurements Intervals [place] Rate: 67 P: 70 MI: 127 QRS: 78 QRSD: 101 T: 53 QT: 430 QTc: 455 Interpretive Statements SINUS RHYTHM POSSIBLE LEFT VENTRICULAR HYPERTROPHY [VOLTAGE CRITERIA PLUS LAE OR QRS WIDENING] MODERATE ST DEPRESSION [0.05+ mV ST DEPRESSION] Compared to ECG 09/14/2021 15:14:58 No significant changes Electronically Signed On 09-14-2021 17:19:44 CDT by Gaston Kruse M.D. [id number]
[2021-09-14] MEDS: lidocaine 2% viscous 15 ML, aluminum-mag hydrox-simethicon 30 ML, sucralfate oral liq 1 GM PO (17:06)
[2021-09-14] MEDS: sodium chloride 0.9% 500 ML 999 ML IV (17:06)
[2021-09-14] MEDS: nitroglycerin 0.4 mg sublingual Tablet SUBLINGUAL (17:44)
[2021-09-14] MEDS: LORazepam 2 mg/mL INJ 1 mL 1 MG IVP (17:56)
[2021-09-14 18:21] LABS: Troponin 5 2HR 50.74 ng/L (0-15)
[2021-09-14 18:23] LABS: Troponin 5 2HR Delta 14.74 ABS# (0-10)
[2021-09-14] MEDS: aspirin 81 mg Chew Tablet 324 MG PO (18:31)
--- NOTE | 2021-09-14 20:44 | PM.HP ---
Providers/Chief Complaint Primary Care Provider: Farrah Matson APN Chief Complaint: Chest Pain History of Present Illness Pleasant 55-year-old gentleman with past history of palpitations, GERD, with intermittent dyspepsia, hypertension, family history of CAD, father of MT at 65, presented to the hospital due to symptoms of chest pressure starting about 10 AM this morning, initially thought symptoms were related to his dyspepsia, took some Tums, subsequently some [place], both times pain did improve, however, returned again and subsequently persisted. Blood pressure on presentation noted elevated at 204/126. He reports while in the ER also experienced some episodes of palpitations, and feels that heart rate had decreased at 1 point, and he felt a cold sweat sensation arising from his legs upward, but did not have presyncope. He states that he intermittently feels palpitations, has had about 3 times in the last week. He had previously had a 21-day monitor about a year ago and follows in office with Dr. Alexander. At that same time he also had a stress test, treadmill echo, which is reported as normal. In ER he is noted to have troponin abnormality with rise of troponin from baseline 36 up to 50.74 at 2 hours with positive delta of 14.74. NT proBNP is 98. Reviewing the monitor I did not see any bradycardia with lowest heart rate of low 60s, 62-63. He reports he did not have to monitor on at the time, had only the pulse oximetry, although does state that the heart rate was also changing when he was moving his hand/finger. He does state that he is very sensitive to and slight palpitations all of which he feels. 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 He works at a [employer]. He otherwise had just completed antibiotics for an URI/ear infection, initially Augmentin which she did not tolerate due to upper GI symptoms, subsequently switched to azithromycin which he completed on Sunday. States he felt better by last Sunday. Chest pressure was epigastric/lower chest, substernal, central, not radiating anywhere. Associated with some bloating, belching, denies being triggered by activity. He does state he also carried some heavy things yesterday. Currently just mild discomfort. Review of Systems Const: Denies: fever(s), chills, body aches or malaise Eyes: Denies: change in vision, eye discomfort or eye redness ENMT: Denies: throat pain, oral sores or ear or mastoid pain Card: Reports: chest pain and palpitations; Denies: edema, swelling of feet/ankles, syncope, dyspnea on exertion or orthopnea Resp: Denies: dyspnea, productive cough, change in phlegm color or hemoptysis GI: Denies: abdominal pain, nausea, vomiting, diarrhea, constipation, hematochezia or melena : Denies: flank pain, difficulty urinating, urinary frequency or hematuria Musc: Denies: back pain, joint swelling or joint redness Skin/Breast: Denies: rash or new lesions Neuro: Denies: headache(s), numbness in extremities, weakness in extremities, dizziness, confusion or seizure-like activity Endo: Denies: polyuria or polydipsia Wilman/Lymph: Denies: easy bleeding or tender lymph nodes All/Imm: Denies: urticaria or tongue swelling Medications/Allergies Home Medications Medication Instructions Recorded Confirmed Last Taken Type olmesartan 40 mg tablet 40 mg PO DAILY 04/30/20 09/14/21 09/14/21 History omeprazole 20 mg capsule,delayed 20 mg PO DAILY 04/30/20 09/14/21 09/14/21 History release simethicone 80 mg chewable tablet 160 mg PO DAILY PRN 04/30/20 09/14/21 09/14/21 History triamterene 37.5 0.5 tab PO DAILY 07/22/20 09/14/21 09/14/21 History mg-hydrochlorothiazide 25 mg tablet acetaminophen 500 mg tablet 500 mg PO Q6H PRN 08/26/20 09/14/21 Unknown History (Tylenol Extra Strength) cetirizine 10 mg tablet (Zyrtec) 10 mg PO DAILY PRN 09/14/21 09/14/21 Unknown History escitalopram oxalate 10 mg tablet 10 mg PO DAILY 09/14/21 09/14/21 09/14/21 History meclizine 25 mg tablet 25 mg PO TID PRN 09/14/21 09/14/21 Unknown History Allergies Allergy/AdvReac Type Severity Reaction Status Date / Time No Known Allergies Allergy Verified 12/29/20 09:23 PFSH Acute PFSH: Medical History Atypical chest pain The EKG done today, 06/23/2019 revealed sinus rhythm with some nonspecific ST-T changes in the inferolateral leads. Otherwise unremarkable. Benign essential HTN History of hypertension Hypokalemia Hypokalemia Near syncope Vertigo Family History Father CAD (coronary artery disease) Grandmother CAD (coronary artery disease) Dementia Diabetes Grandfather Cancer Son Diabetes Denies family history of Clotting disorder Chronic kidney disease (CKD) Suicide Anesthesia complication Bleeding disorder Lung disease Stroke Social History (Updated 09/14/21 @ 20:52 by Gurdeep Hernandez MD) Smoking and tobacco status: never smoked Alcohol intake: current Alcohol intake frequency: holidays/special occasions only Alcohol type: beer Lives independently: Yes Marital status: Vitals/I&O/Wt Last Vital Signs Temp 97.7 F 09/14/21 14:45 Pulse 76 09/14/21 19:19 Resp 22 H 09/14/21 19:19 BP 171/109 09/14/21 19:19 Pulse Ox 98 09/14/21 19:19 09/14/21 09/14/21 09/14/21 06:59 14:59 22:59 Intake Total 500 / 500 Balance 500 / 500 Weight last 48 hrs Weight 88.451 kg Physical Exam Narrative: at bedside. Const: COMMON NORMALS: alert GENERAL APPEARANCE: cooperative ORIENTATION/CONSCIOUSNESS: Yes awake HENMT: COMMON NORMALS: normocephalic, EAC's normal, Normal external nose present and moist oral mucous membranes HEAD & SCALP: normocephalic NOSE: Normal external nose present EXTERNAL AUDITORY CANAL: EAC's normal Neck/C-Spine: COMMON NORMALS: no meningeal signs Chest: CHEST: Yes Symmetrical chest wall rise Resp: COMMON NORMALS: clear to auscultation bilaterally AUSCULTATION: clear to auscultation bilaterally Cardio: COMMON NORMALS: regular rate, regular rhythm and No murmurs present (Cardio) RATE: regular rate RHYTHM: regular rhythm GI: COMMON NORMALS: Normal to inspection, nondistended, normoactive bowel sounds present, Soft to palpation and non-tender PALPATION: Yes Soft to palpation Extremity: COMMON NORMALS: no pedal edema Neuro: COMMON NORMALS: moves all extremities SENSORIUM/ORIENTATION: Yes alert MENINGEAL SIGNS: Yes no meningeal signs Psych: COMMON NORMALS: mental status grossly normal Skin: COMMON NORMALS: no wounds RASHES: no rashes Data : 09/14/21 15:55 09/14/21 15:55 A&P Assessment and plan (1) Non-ST elevation (NSTEMI) myocardial infarction: Central chest discomfort, substernal, epigastric, with some GI symptoms. Atypical. However, does have troponin elevation, baseline 36, 2-hour troponin 50.7 4. Discussed with him possibility of NSTEMI in the gentleman with history of hypertension, family history of CAD with his father after an MT at age 65, although this may also be type II MT he has discussed with him, possibly secondary to either hypertension, his blood pressure was very elevated on presentation, or possibly with noted bigeminy on EKG. Complete troponin EKG trend. Assess TTE. He had just had a stress test over a year ago which was unremarkable. For now we will treat as possible NSTEMI as discussed with him and his , her, we will additionally assess with nuclear stress test tomorrow unless significant chest discomfort returns/persists. Aspirin, therapeutic Lovenox for now, discussed with him additionally starting low-dose metoprolol, although he says in the past did not tolerated well with blood pressure getting down to 107 systolic. Discussed potentially one of the other medications could be deescalated to allow continuation of beta-ginny. Check lipid profile. Nitro as needed. Resume blood pressure medications. Monitor blood pressures. Optimize control, he does state that at home usually blood pressures run 120s-130s. Seems that he has episodic hypertension. Additionally continue PPI, with episodes of dyspepsia, consider also nonurgent assessment by EGD given history of GERD with persistent symptoms. Status: Acute (2) Chest pain: Status: Acute (3) HTN (hypertension): At presentation blood pressure as high as 204/126. Resume olmesartan, add metoprolol. At home also on triamterene-HCTZ. Status: Acute (4) Bigeminy: Additional work-up for possible cardiac ischemia as above. Check magnesium. TSH. Monitor on telemetry. Status: Acute (5) Palpitations: Status: Acute Attestations Medical Necessity Statement*: Place in observation for additional assessment of management of possible NSTEMI, chest pressure, bigeminy. Coding Level of Care Code Acute Artistic Director for [facility] Fwd Exam Comprehensive Diagnoses Non-ST elevation (NSTEMI) myocardial infarction I21.4 Chest pain R07.9 Palpitations R00.2 HTN (hypertension) I10 Bigeminy I49.8
--- NOTE | 2021-09-14 20:52 | ECG_ITS ---
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 Measurements Intervals [place] Rate: 93 P: 73 IL: 130 QRS: 79 QRSD: 108 T: 60 QT: 366 QTc: 457 Interpretive Statements SINUS RHYTHM WITH FREQUENT VENTRICULAR PREMATURE COMPLEXES IN A BIGEMINAL PATTERN LEFT VENTRICULAR HYPERTROPHY AND ST-T CHANGE [VOLTAGE CRITERIA PLUS ST/T ABNORMALITY] LATERAL MYOCARDIAL INFARCTION , PROBABLY RECENT [40+ ms Q WAVE AND/OR ST/T ABNORMALITY IN I/aVL/V5/V6] POSSIBLE INFERIOR MYOCARDIAL INFARCTION , PROBABLY OLD [30 ms Q WAVE IN II/aVF] ACUTE IL Compared to ECG 09/14/2021 16:43:55 Ventricular premature complex(es) now present Myocardial infarct finding now present ST (T wave) deviation still present Electronically Signed On 09-16-2021 13:43:41 CDT by Hailey Alexander M.D. [email or web address] [id number]
[2021-09-14] MEDS: metoprolol tartrate 25 mg Tablet 12.5 MG PO (21:45)
[2021-09-14] MEDS: enoxaparin 100 mg/mL Syringe 90 MG SUBCUT (21:45)
[2021-09-14 22:37] LABS: Chol HDL Ratio 3.22 mg/dL (1.0-5.00); Cholesterol 248 mg/dL (0-200); HDL Cholesterol 77 mg/dL (60-100); LDL Cholesterol Calculated 151 mg/dL (50-129); LDL HDL Ratio 1.96 RATIO (0.00-3.22); Triglycerides 102 mg/dL (0-150)
[2021-09-14 22:40] LABS: Troponin 5 6HR 178.4 ng/L (0-15); Troponin 5 6HR Delta 142.4 ng/L (0-12)
[2021-09-14 22:43] LABS: Thyroid Stimulating Hormone 1.05 uIU/mL (0.27-4.20)
[2021-09-15] VITALS (10 sets, daily range): BP systolic 138–148; BP diastolic 87–103; PULSE 58–86; RESP 16–26; TEMP 36.4–37; O2SAT 91–98
--- NOTE | 2021-09-15 00:42 | USCV_ITS ---
Transthoracic Echo Jesus Malone Age: 55 Gender: M : 1965 Exam Date: 09/15/2021 00:56 Ordering Phys: Gurdeep Hernandez MD Technologist: Lawrence Daniels [place]am [place] [facility] [place]: Chest Pain/Elevated Troponin BP: 131 / 93 HR: 64 Rhythm: Sinus Technical Quality: Adequate MEASUREMENTS (Male / Female) Normal Values 2D ECHO LV Diastolic Diameter PLAX 4.2 cm 4.2 - 5.9 / 3.9 - 5.3 cm LV Systolic Diameter PLAX 2.5 cm IVS Diastolic Thickness 1.4 cm 0.6 - 1.0 / 0.6 - 0.9 cm IVS Systolic Thickness 2.1 cm LVPW Diastolic Thickness 1.4 cm 0.6 - 1.0 / 0.6 - 0.9 cm LVPW Systolic Thickness 1.4 cm LVOT Diameter 2.3 cm LV Ejection Fraction 2D Teich 71.4 % LV Ejection Fraction MOD 2C 47.8 % LV Ejection Fraction 2C AL 50.8 % LA Diameter 4.1 cm LA Width 4.2 cm LA Height 5.8 cm RA Width 3.5 cm RA Height 5.9 cm Aorta at Sinotubular Diameter 2.0 cm M-MODE Aortic Annulus Diameter 3.4 cm LA Ao Ratio MM 1.2 MV E Point Septal Separation 0.3 cm DOPPLER AV Peak Velocity 143.4 cm/s LVOT Peak Velocity 101.0 cm/s AV Area Cont Eq vti 3.5 cm squared AV Area Cont Eq pk 2.9 cm squared MV Peak Velocity 51.0 cm/s MV Area PHT 2.5 cm squared Mitral E to A Ratio 0.9 MV E' Velocity 21.2 cm/s Mitral E to MV E' Ratio 5.8 Mitral E to LV E' Lateral Ratio 6.8 Mitral E to LV E' Septal Ratio 5.1 TR Peak Velocity 179.0 cm/s TR Peak Gradient 12.8 mmHg TR Mean Velocity 160.8 cm/s TR Mean Gradient 12.3 mmHg TR Velocity Time Integral 61.7 cm Right Atrial Pressure 5.0 mmHg Pulmonary Artery Systolic Pressu 17.8 mmHg PV Peak Velocity 73.0 cm/s RV Acceleration Time 0.2 s RV Ejection Time 0.3 s RV AcT/ET 0.5 FINDINGS Left Ventricle Normal left ventricular size, systolic function and mildly increased wall thickness. Left ventricular ejection fraction is estimated at 60 %. There is hypokinesis of apical septal, apical anterior, apical lateral and apical olmed[place]. Grade II diastolic dysfunction, moderately elevated filling pressures. Right Ventricle Normal right ventricular size and systolic function. Right Atrium Normal right atrial size. Left Atrium Mildly increased left atrial size. Mitral Valve Structurally normal mitral valve. No mitral valve stenosis. Trace mitral valve regurgitation. Aortic Valve Structurally normal trileaflet aortic valve. No aortic valve stenosis. Tricuspid Valve Structurally normal tricuspid valve. No tricuspid valve stenosis. Trace tricuspid valve regurgitation. Pulmonic Valve Pulmonic valve not well visualized. No pulmonary valve stenosis. No pulmonary valve regurgitation. Pericardium No pericardial effusion. Aorta Normal-sized aortic root. CONCLUSIONS 1. This is a technically difficult study with off axis images. 2. Normal left ventricular size, systolic function and mildly increased wall thickness. Left ventricular ejection fraction is estimated at 60 %. There is hypokinesis of apical septal, apical anterior, apical lateral and apical olmedo. Grade II diastolic dysfunction, moderately elevated filling pressures. 3. Mildly increased left atrial size. 4. No prior similar studies to compare. Bethany Mason MD (Electronically Signed) Final Date: 15 September 2021 17:45 S
[2021-09-15 04:17] LABS: Basophils % 0.4 %; Eosinophils % 0.4 %; Hematocrit 44.4 % (42.0-52.0); Lymphocytes # 1.5 10^3/uL (0.8-4.8); Lymphocytes % 16.7 %; Mean Corpuscular HGB Conc 33.8 g/dL (30.0-36.0); Mean Corpuscular Hemoglobin 30.5 pg (28.0-34.0); Mean Corpuscular Volume 90.4 fl (80-94); Mean Platelet Volume 9.9 fL (7.4-10.4); Monocytes # 0.9 10^3/uL (0.2-0.9); Monocytes % 9.4 %; Neutrophils # 6.72 10^3/uL (1.8-7.7); Neutrophils % 72.8 %; Nucleated Red Blood Cells % 0 %; Platelet Count 296 10^3/cmm (130-400); Red Blood Count 4.91 10^6/uL (4.1-5.3); Red Cell Distribution Width 12.2 % (12.1-15.1); White Blood Count 9.2 10^3/uL (4.0-10.0)
[2021-09-15 04:35] LABS: Alanine Aminotransferase 30 U/L (0-41); Albumin Level 4.6 g/dL (3.5-5.2); Alkaline Phosphatase 46 IU/L (40-130); Anion Gap 15.7 (5-19); Aspartate Amino Transferase 102 U/L (0-40); Blood Urea Nitrogen 11 mg/dL (6-20); Calcium 10.2 mg/dL (8.5-10.5); Carbon Dioxide 26 mmol/L (22-29); Chloride 98 mmol/L (98-107); Globulin 2.6 g/dL (1.3-4.6); Glomerular Filtration Rate 88.3 mL/min (90-130); Glucose 97 mg/dL (65-115); Osmolality Calculated 281 mOsm/kg (285-295); Potassium 3.7 mmol/L (3.5-5.1); Sodium 136 mmol/L (136-145); Total Bilirubin 0.7 mg/dL (0.15-1.2); Total Protein 7.2 g/dL (6.6-8.7)
--- NOTE | 2021-09-15 07:29 | PC.NURSE ---
bedside report received from Majo Meza patient not in room at time of report patient off unit for testing
--- NOTE | 2021-09-15 07:54 | PC.NURSE ---
Call received from provider to keep patient NPO after stress test
--- NOTE | 2021-09-15 08:00 | ECG_ITS ---
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 Interpretive Statements NAME OF STUDY: LEXISCAN SESTAMIBI STRESS TEST INDICATION: Chest Pain, Abnormal Troponin RESULTS TO [facility] PROCEDURE: At the baseline, the EKG revealed normal sinus rhythm with features of recent lateral infarction-Q waves in lead I and aVL with ST elevation and depression. Nonspecific ST-T changes in lead V2. Nonspecific ST changes in the inferior lead. the baseline blood pressure was 126/97 mm Hg with a heart rate of 71 beats/min. Lexiscan was infused over a period of 20 seconds. A total of 0.4 milligrams of Lexiscan was infused. The stress phase was continued for a total of 5 minutes. Heart rate at the end of the stress phase was 94 with a blood pressure 141/99. The EKG at the peak infusion revealed no significant changes. Sestamibi was injected 20 seconds after the Lexiscan infusion. Blood pressure at the end of the recovery phase was 148/97 with a heart rate of 83 per minute. CONCLUSION: 1. No significant EKG changes with the LexiScan infusion 2. No LexiScan induced chest pain or cardiac arrhythmia 3. Normal blood pressure and heart rate response 4. Sestamibi/sestamibi perfusion scan pending; see separate report. Electronically Signed On 09-16-2021 14:57:05 CDT by Hailey Alexander M.D. [email or web address] Solutionsun[email or web address].[email or web address]/[id number]
[2021-09-15] MEDS: regadenoson 0.4 Mg/5 ml Syringe IVP (08:04)
[2021-09-15] MEDS: losartan 50 mg Tablet 100 MG PO (09:42)
[2021-09-15] MEDS: escitalopram 10 mg Tablet PO (09:42)
[2021-09-15] MEDS: pantoprazole DR 40 mg Tablet 20 MG PO (09:43)
[2021-09-15] MEDS: aspirin 325 mg Tablet PO (09:43)
[2021-09-15] MEDS: metoprolol tartrate 25 mg Tablet 12.5 MG PO (09:45)
--- NOTE | 2021-09-15 09:59 | PC.NURSE ---
approved not giving Lovenox at this time due to possible procedure
--- NOTE | 2021-09-15 10:45 | PC.CHAP ---
Pastoral Care Encounter/Spiritual Assessment Type of Contact [] Declined community education coordinator visit [] Patient/Family/Request visit [] Outpatient visit [] Follow-up visit [] Physician referral [] Code/Alert [x] Routine visit [] Staff referral [] Actively dying [] Patient sleeping [] Family support [] [] Out of room [] Palliative care [] [x] Receiving care in room [] Pre-surgical visit [] Trauma [] Long length of stay [] ICU visit [] Other: Relational/Emotional Strength [x] Patient feels connected with others/family/visitors/staff [] Distress [] Loneliness/isolation [] Abandonment Spirituality of Patient [x] Person of [place] [] Attends Religion of their [place] [x] Believes in Prayer [] Reads Bible or Synagogue materials [] There are Spiritual issues to be addressed Stockroom Worker Interventions [x] Prayer [x] Active listening [x] Non-anxious presence [x] Spiritual/emotional support [] Crisis/trauma care [x] Spiritual counseling [] Bereavement support [] Provided bereavement packet [] Provided Bible/devotional materials [] Provided toy/stuffed animal, coloring book to patient or family member [] Provided Communion [] Anointing/[place] [] Salvation [x] Completed spiritual assessment [] Other: Impact on Illness or Injury [] Angry [] Fearful [] Anxious [] Often cries [] Exhaustion [] Unable to work [] Unable to attend amish [] Unable to walk/stand [] Unable to read [] Unable to drive [] Unable to eat/drink [] Unable to sleep [] Unable to be with family [] Patient intubated [] Other: Summary feeling better postive attitude is [place] home Time spent with patient 10 mins
--- NOTE | 2021-09-15 15:50 | PM.PN ---
Vitals/I&O/Wt Last Vital Signs Temp 97.6 F 09/15/21 12:00 Pulse 77 09/15/21 14:00 Resp 18 09/15/21 12:00 BP 144/95 09/15/21 12:00 Pulse Ox 95 09/15/21 12:00 09/15/21 09/15/21 09/15/21 06:59 14:59 22:59 Intake Total 300 / 800 960 / 960 Balance 300 / 800 960 / 960 Weight last 48 hrs Weight 88.723 kg Weight 88.451 kg Physical Exam Const: COMMON NORMALS: no acute distress and patient oriented x3 Resp: COMMON NORMALS: normal respiratory effort, No retractions, No use of accessory muscles and clear to auscultation bilaterally AUSCULTATION: clear to auscultation bilaterally Cardio: COMMON NORMALS: regular rate, regular rhythm, S1 normal heart sound present and S2 normal heart sound present RATE: regular rate RHYTHM: regular rhythm HEART SOUNDS: S1 normal heart sound present and S2 normal heart sound present GI: COMMON NORMALS: Normal to inspection, nondistended, normoactive bowel sounds present, Soft to palpation and non-tender PALPATION: Yes Soft to palpation Extremity: COMMON NORMALS: no pedal edema Neuro: COMMON NORMALS: patient oriented x3 Psych: COMMON NORMALS: mental status grossly normal Data : 09/15/21 03:39 09/15/21 03:39 A&P Assessment and plan (1) HTN (hypertension): Status: Acute (2) Non-ST elevation (NSTEMI) myocardial infarction: Status: Acute (3) Chest pain: Status: Acute Plan Chest pain, NSTEMI -6-hour troponin 170, delta 142 -1.? Myocardial perfusion imaging revealing moderate area of persistent ?decreased tracer uptake in the anterolateral, inferolateral and apical regions ?with some reversibility mostly in the anterior and anterolateral regions, ?suggesting myocardial scarring in the distribution of the left anterior ?descending artery and circumflex artery with small areas of cameron-infarction ?ischemia mostly in the left anterior descending artery territory. ?2.? Normal LV ejection fraction 59%. ?3.? LV wall motion analysis revealing mild hypokinesia of the mid and apical ?anterior and septal regions. ?4.? LV volume, upper limit of normal Plan -Continue aspirin -cardiac echo pending -Continue statin -Continue therapeutic Lovenox -Continue metoprolol -N.p.o. midnight -Proceeding to cardiac catheterization -Cardiology on consult Attestations Medical Necessity Statement*: Patient requires hospitalization for chest pain, NSTEMI, proceeding to cardiac catheterization, inpatient, greater than 2 midnights Coding Level of Care Code Acute Manager Of Network for [facility] Fwd Diagnoses HTN (hypertension) I10 Non-ST elevation (NSTEMI) myocardial infarction I21.4 Chest pain R07.9
--- NOTE | 2021-09-15 18:52 | P.CONIM_ITS ---
Providers/Reason For Consult Consulting Physician/Specialty*: RAHUL Alexander MD/cardiology Reason for Consult*: Chest pain and elevated troponin T Requesting Physician: Dr. Call Attending Physician: Taqueria Call MD Primary Care Provider: Farrah Matson APN History of Present Illness History of Present Illness Jesus Malone is a 55 year old male is admitted to hospital with recurrent episodes of chest pain. This patient is known to have high blood pressure and atrial arrhythmia. He also is known to have a history of atypical chest pains. He had a an exercise echo a year ago which was unremarkable. The patient has been in his baseline state of health up until last Sunday when he had the first episode of chest pain while he was in [place]. He described it as burning type of epigastric/lower substernal pain started after a meal. The pain might have lasted for 20 minutes or so. The symptoms gradually subsided with some antacids. He had 3 episodes of chest pain yesterday each of these episodes lasting anywhere from 10 to 30 minutes. They were moderate intensity. There is a burning/pressure-like pain. No associated shortness of breath. There was some nausea. No palpitation, dizziness or syncopal episode. No other associated symptoms or radiation. Because of the recurrent episodes of chest pains lasting longer and more intense than the pains that he used to get with acid reflux in the past, he decided come to the hospital. Patient was found to have elevated troponin T. He had a myocardial perfusion imaging today which revealed areas of fixed and reversible defects as mentioned below. Review of Systems Const: Denies: fever(s), chills, body aches or malaise Eyes: Denies: change in vision, eye discomfort or eye redness ENMT: Denies: throat pain, oral sores or ear or mastoid pain Card: Reports: chest pain and palpitations; Denies: edema, swelling of feet/ankles, syncope, dyspnea on exertion or orthopnea Resp: Denies: dyspnea, productive cough, change in phlegm color or hemoptysis GI: Reports: heartburn; Denies: abdominal pain, nausea, vomiting, diarrhea, constipation, hematochezia or melena : Denies: flank pain, difficulty urinating, urinary frequency or hematuria Musc: Denies: back pain, joint swelling or joint redness Skin/Breast: Denies: rash or new lesions Neuro: Denies: headache(s), numbness in extremities, weakness in extremities, dizziness, confusion or seizure-like activity Endo: Denies: polyuria or polydipsia Wilman/Lymph: Denies: easy bleeding or tender lymph nodes All/Imm: Denies: urticaria or tongue swelling Medications/Allergies Home Medications Medication Instructions Recorded Confirmed Last Taken Type olmesartan 40 mg tablet 40 mg PO DAILY 04/30/20 09/14/21 09/14/21 History omeprazole 20 mg capsule,delayed 20 mg PO DAILY 04/30/20 09/14/21 09/14/21 History release simethicone 80 mg chewable tablet 160 mg PO DAILY PRN 04/30/20 09/14/21 09/14/21 History triamterene 37.5 0.5 tab PO DAILY 07/22/20 09/14/21 09/14/21 History mg-hydrochlorothiazide 25 mg tablet acetaminophen 500 mg tablet 500 mg PO Q6H PRN 08/26/20 09/14/21 Unknown History (Tylenol Extra Strength) cetirizine 10 mg tablet (Zyrtec) 10 mg PO DAILY PRN 09/14/21 09/14/21 Unknown History escitalopram oxalate 10 mg tablet 10 mg PO DAILY 09/14/21 09/14/21 09/14/21 History meclizine 25 mg tablet 25 mg PO TID PRN 09/14/21 09/14/21 Unknown History Allergies Allergy/AdvReac Type Severity Reaction Status Date / Time No Known Allergies Allergy Verified 09/14/21 21:47 Current Medications Generic Name Dose Route Start Last Admin Trade Name Karlee PRN Reason Stop Dose Admin Aspirin 325 mg 09/15/21 09:00 09/15/21 09:43 Aspirin 325 Mg Tablet PO 325 mg DAILY JANE Administration Enoxaparin Sodium 90 mg 09/14/21 21:15 09/15/21 09:55 Enoxaparin 100 Mg/Ml Syringe 1 mg/kg (90 mg) Not Given SUBCUT Q12H JANE Escitalopram Oxalate 10 mg 09/15/21 09:00 09/15/21 09:42 Escitalopram 10 Mg Tablet PO 10 mg DAILY JANE Administration Losartan Potassium 100 mg 09/15/21 09:00 09/15/21 09:42 Losartan 50 Mg Tablet PO 100 mg DAILY JANE Administration Metoprolol Tartrate 12.5 mg 09/14/21 21:11 09/15/21 09:45 Metoprolol Tartrate 25 Mg Tablet PO 12.5 mg BID@0900,2100 JANE Administration Non-Formulary Medication 0.5 tab 09/15/21 09:00 09/15/21 09:43 Triamterene-Hydrochlorothiazid PO Not Given DAILY JANE Pantoprazole Sodium 20 mg 09/15/21 09:00 09/15/21 09:[address] 40 Mg Tablet PO 20 mg DAILY JANE Administration PFSH Acute PFSH: Medical History Atypical chest pain The EKG done today, 06/23/2019 revealed sinus rhythm with some nonspecific ST-T changes in the inferolateral leads. Otherwise unremarkable. Benign essential HTN History of hypertension Hypokalemia Hypokalemia Near syncope Vertigo Family History Father CAD (coronary artery disease) Grandmother CAD (coronary artery disease) Dementia Diabetes Grandfather Cancer Son Diabetes Denies family history of Clotting disorder Chronic kidney disease (CKD) Suicide Anesthesia complication Bleeding disorder Lung disease Stroke Social History Smoking and tobacco status: never smoked Alcohol intake: current Alcohol intake frequency: holidays/special occasions only Alcohol type: beer Lives independently: Yes Marital status: Vitals/I&O/Wt Last Vital Signs Temp 98.5 F 09/15/21 18:42 Pulse 76 09/15/21 18:42 Resp 26 H 09/15/21 18:42 BP 145/103 09/15/21 18:42 Pulse Ox 91 09/15/21 18:42 09/15/21 09/15/21 09/15/21 06:59 14:59 22:59 Intake Total 300 / 800 960 / 960 236 / 1196 Balance 300 / 800 960 / 960 236 / 1196 Weight last 48 hrs Weight 195 lb 9.6 oz Weight 195 lb Physical Exam Narrative: GENERAL: The patient is alert and oriented times three. Not in any acute distress. HEENT: No significant pallor, icterus or lymphadenopathy. The pupils are reactant to light. Oral cavity: There are no mucous membrane lesions. Funduscopic examination: Fundus is not visualized NECK: Trachea appears to be central. No masses noted. No JVD or thyromegaly appreciated. No carotid bruit. RESPIRATORY: Chest is symmetrical. No intercostals muscle retraction or any accessory muscle activation. There is no chest wall tenderness. Breath sounds are heard bilaterally. No rales or rhonchi heard. No evidence of any consolidation. BREASTS: Deferred. HEART: The PMI is in the 5th left intercostals space just inside the midclavicular line. No palpable precordial events. S1 and S2 are normal. No S3 or S4 heard. No pericardial rub or any click heard. ABDOMEN: No vessel pulsations or distention. No tenderness. No organomegaly appreciated. No abdominal bruit. Bowel sounds are normally heard. : Deferred. RECTAL: Deferred. LYMPHATIC: No lymphadenopathy noted in the neck or groin. EXTREMITIES: No edema or cyanosis. No clubbing. The pulses are symmetrical bilaterally. The radial, femoral, dorsalis pedis and the posterior tibial pulses are palpated and found to be in good volume and amplitude. MUSCULOSKELETAL: Gait is normal. There is no joint deformity or swelling noted. No joint tenderness or any effusion. The shoulder and hip joints appear to have normal range of motion. SKIN: Some ecchymosis in the upper extremity from IV access NEUROPSYCHIATRIC: The patient is alert and oriented x3. Appears to be in a good mood. The higher functions are grossly within normal limits. No tremors or rigidity noted. Data : 09/15/21 03:39 09/15/21 03:39 Other Labs: Laboratory Last Values WBC 9.2 10^3/uL (4.0-10.0) 09/15/21 03:39 RBC 4.91 10^6/uL (4.1-5.3) 09/15/21 03:39 Hgb 15.0 g/dL (11.7-16.6) 09/15/21 03:39 Hct 44.4 % (42.0-52.0) 09/15/21 03:39 MCV 90.4 fl (80-94) 09/15/21 03:39 MCH 30.5 pg (28.0-34.0) 09/15/21 03:39 MCHC 33.8 g/dL (30.0-36.0) 09/15/21 03:39 RDW 12.2 % (12.1-15.1) 09/15/21 03:39 Plt Count 296 10^3/cmm (130-400) 09/15/21 03:39 MPV 9.9 fL (7.4-10.4) 09/15/21 03:39 Neut % (Auto) 72.8 % 09/15/21 03:39 Lymph % (Auto) 16.7 % 09/15/21 03:39 [place] % (Auto) 9.4 % 09/15/21 03:39 Eos % (Auto) 0.4 % 09/15/21 03:39 Baso % (Auto) 0.4 % 09/15/21 03:39 Neut # (Auto) 6.72 10^3/uL (1.8-7.7) 09/15/21 03:39 Lymph # (Auto) 1.5 10^3/uL (0.8-4.8) 09/15/21 03:39 [place] # (Auto) 0.9 10^3/uL (0.2-0.9) 09/15/21 03:39 Eos # (Auto) 0.0 10^3/uL (0.0-0.8) 09/15/21 03:39 Baso # (Auto) 0.0 10^3/uL (0.0-0.1) 09/15/21 03:39 Nucleated RBC % (auto) 0 % 09/15/21 03:39 Nucleated RBCs # 0.0 /100WBC 09/15/21 03:39 Sodium 136 mmol/L (136-145) 09/15/21 03:39 Potassium 3.7 mmol/L (3.5-5.1) 09/15/21 03:39 Chloride 98 mmol/L (98-107) 09/15/21 03:39 Carbon Dioxide 26 mmol/L (22-29) 09/15/21 03:39 Anion Gap 15.7 (5-19) 09/15/21 03:39 BUN 11 mg/dL (6-20) 09/15/21 03:39 Creatinine 0.9 mg/dL (0.7-1.2) 09/15/21 03:39 GFR Calculation 88.3 mL/min (90-130) L 09/15/21 03:39 Glucose 97 mg/dL (65-115) 09/15/21 03:39 Calculated Osmolality 281 mOsm/kg (285-295) L 09/15/21 03:39 Calcium 10.2 mg/dL (8.5-10.5) 09/15/21 03:39 Magnesium 2.0 mg/dL (1.7-2.3) 09/14/21 21:59 Total Bilirubin 0.7 mg/dL (0.15-1.2) 09/15/21 03:39 AST 102 U/L (0-40) H 09/15/21 03:39 ALT 30 U/L (0-41) 09/15/21 03:39 Alkaline Phosphatase 46 IU/L (40-130) 09/15/21 03:39 Troponin T Baseline 36 ng/L (0-15) H 09/14/21 15:55 Troponin T 120 Minute 50.74 ng/L (0-15) H 09/14/21 17:50 Delta Troponin T 14.74 ABS# (0-10) H* 09/14/21 17:50 Troponin T Hi Sens 6Hr 178.4 ng/L (0-15) H 09/14/21 21:59 Troponin T Hi Sens 6Hr Delta 142.4 ng/L (0-12) H* 09/14/21 21:59 NT-Pro-B Natriuret Pep 98 pg/mL (0-125) 09/14/21 15:55 Total Protein 7.2 g/dL (6.6-8.7) 09/15/21 03:39 Albumin 4.6 g/dL (3.5-5.2) 09/15/21 03:39 Globulin 2.6 g/dL (1.3-4.6) 09/15/21 03:39 Triglycerides 102 mg/dL (0-150) 09/14/21 21:59 Cholesterol 248 mg/dL (0-200) H 09/14/21 21:59 LDL Cholesterol, Calc 151 mg/dL (50-129) H 09/14/21 21:59 HDL Cholesterol 77 mg/dL (60-100) 09/14/21 21:59 LDL/HDL Ratio 1.96 RATIO (0.00-3.22) 03/30/22 21:59 Cholesterol/HDL Ratio 3.22 mg/dL (1.0-5.00) 09/14/21 21:59 Lipase 33 U/L (13-60) 09/14/21 15:55 TSH 1.05 uIU/mL (0.27-4.20) 09/14/21 21:59 Myocardial perfusion: My impression: 1.? Myocardial perfusion imaging revealing moderate area of persistent ?decreased tracer uptake in the anterolateral, inferolateral and apical regions ?with some reversibility mostly in the anterior and anterolateral regions, ?suggesting myocardial scarring in the distribution of the left anterior ?descending artery and circumflex artery with small areas of cameron-infarction ?ischemia mostly in the left anterior descending artery territory. ?2.? Normal LV ejection fraction 59%. ?3.? LV wall motion analysis revealing mild hypokinesia of the mid and apical ?anterior and septal regions. ?4.? LV volume, upper limit of normal. EKG 1: My Interpretation: EKG from 09/14/2021 Normal sinus rhythm with a frequent PVCs in the form of bigeminy. Somewhat elevated for LVH. ST elevation in the high lateral leads may suggest high lateral wall [place] EKG computer-generated impression: Chest X-Ray 09/14/21 14:51 IMPRESSION: Unremarkable chest radiograph. Other data: 07/20/20 Stress Echo Normal echocardiogram response to treadmill exercise. ?No significant coronary ischemia, based on the above findings 07/20/20 Stress Test 1.? Normal EKG response to treadmill exercise 2.? No exercise-induced chest pain or cardiac arrhythmia.? Hypertensive response to exercise 3.? Fair exercise tolerance, attained a maximum of 1.2 METs 06/24/20 Cardiac Event Monitor 1.? The baseline rhythm was found to be [normal sinus] with a heart rate of 73 bpm. 2.? Few short runs of symptomatic paroxysmal atrial tachycardia and nonsustained ventricular tachycardia 3.? Most of the other symptoms were found to be associated with normal sinus. A&P Assessment and plan (1) Lateral wall myocardial infarction: The patient's clinical features are consistent with a recent high lateral wall myocardial infarction. Currently the patient is pain-free. In view of his clinical presentation and abnormal objective findings, in order to further evaluate his coronary status, he requires a cardiac catheterization. The risk of bleeding, hematoma, vascular injury, myocardial infarction, CVA, renal failure and other concomitant complications were explained in detail. Patient understood this well and consented to proceed. We may go ahead and schedule him for a cardiac catheterization tomorrow morning. Based on the results, further recommendations will be made. Patient may be treated with subcu Lovenox, beta-ginny, statin, aspirin and Plavix Status: Acute (2) Benign essential HTN: The blood pressure is a stage II. We will try to optimize the antihypertensive medications. Status: Acute (3) Ventricular arrhythmia: Patient was found to have supraventricular arrhythmia in the form of bigeminy in the initial EKG. Currently he seems to be in a sinus rhythm with no significant arrhythmias. Patient may be continued on the beta-ginny. Also may add Mag- Tab SR 84 mg 2 tabs p.o. daily Status: Acute (4) Dyslipidemia: Agree with Lipitor. Status: Acute Plan Patient requires a cardiac catheterization, to further evaluate his coronary status and decide on further management. It was discussed with the patient and his in detail which he understood well and consented to proceed. We will go ahead and schedule the procedure in the morning. Based on the angiogram findings, further recommendations will be made. Thank you for the opportunity to evaluate this patient and make these recommendations Consult Attestations Medical Necessity Statement: Patient requires continued hospital stay for close monitoring and further management Coding Level of Care Code Acute K [employer] for Mike Stout History Detailed Exam Detailed Medical Decision Making High Complexity Diagnoses Benign essential HTN I10 Lateral wall myocardial infarction I21.29 Ventricular arrhythmia I49.9 Dyslipidemia E78.5
--- NOTE | 2021-09-15 19:25 | PC.NURSE ---
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
[2021-09-15] MEDS: enoxaparin 100 mg/mL Syringe 90 MG SUBCUT (19:31)
--- NOTE | 2021-09-15 19:34 | PC.NURSE ---
Dr. steinberg with instructions to increase metoprolol to [address] nitro 1 to chest wall and 300 Mg plavix Po x1
[2021-09-15] MEDS: nitroglycerin 1 gm/inch oint Pkt 1 INCH TOPICAL (19:49)
[2021-09-15] MEDS: clopidogrel 300 mg Tablet PO (19:49)
--- NOTE | 2021-09-15 21:11 | NMCV_ITS ---
NM lázaro perf SPECT r/s* [id number] Jesus Malone Age: 55 Gender: M : 1965 Exam Date: 09/15/2021 06:27 Ordering Phys: Gurdeep Hernandez MD Technologist: ADWOA Haywood Exam Location: [facility] Indications: CHEST PAIN STRESS TEST Please see separate stress test report in [facility] for full findings IMAGE PROTOCOL Rest/Stress 1 Lexiscan Day Radiopharmaceutical Dose (mCi) Administration Site Administered by Rest: Tc-99m 10.9 IV Curry De Guzman, ADWOA Sestamibi Stress:Tc-99m 32.9 IV ADWOA Soto Sestamibi Rest: 15-Sep-2021 60 Discovery 630 Stress: 15-Sep-2021 30 Discovery 630 0.4mg Lexiscan. Images obtained in supine and prone position. SPECT RESULTS Technical Quality: Excellent Raw Data Analysis: Normal Image Corrections: No attenuation or motion correction applied Summed Stress Score: 15 Summed Rest Score: 12 Summed Difference Score: 3 PERFUSION FINDINGS Moderate area of severely decreased tracer uptake in the mid and apical anterior, mid anterolateral, apical lateral , mid inferolateral and apical regions. Some reversibility was noted in the anterolateral, inferolateral and apical lateral regions. FUNCTIONAL RESULTS (calculated via Gated SPECT) Stress Image LV EF (%): 59 Stress EDV (mL):108 TID: 1.09 Stress ESV (mL):44 FUNCTIONAL FINDINGS: LV wall motion analysis revealing mild hypokinesia of the mid and apical anterior and septal segments. IMPRESSIONS 1. Myocardial perfusion imaging revealing moderate area of persistent decreased tracer uptake in the anterolateral, inferolateral and apical regions with some reversibility mostly in the anterior and anterolateral regions, suggesting myocardial scarring in the distribution of the left anterior descending artery and circumflex artery with small areas of cameron-infarction ischemia mostly in the left anterior descending artery territory. 2. Normal LV ejection fraction 59%. 3. LV wall motion analysis revealing mild hypokinesia of the mid and apical anterior and septal regions. 4. LV volume, upper limit of normal. No similar previous studies are available for combative Dr Hailey Alexander MD [facility] (Electronically Signed) Final Date: 15 September 2021 13:46 S
[2021-09-15] MEDS: metoprolol tartrate 25 mg Tablet PO (21:47)
[2021-09-15] MEDS: atorvastatin 40 mg Tablet PO (21:47)
[2021-09-16] VITALS (37 sets, daily range): BP systolic 114–149; BP diastolic 80–96; PULSE 51–75; RESP 12–31; TEMP 36.8–37.5; O2SAT 89–100
[2021-09-16] MEDS: nitroglycerin 1 gm/inch oint Pkt 1 INCH TOPICAL (03:46)
[2021-09-16] MEDS: acetaminophen 500 mg Tablet PO ×2 (04:00→13:46)
[2021-09-16 05:14] LABS: Basophils % 0.4 %; Eosinophils # 0.1 10^3/uL (0.0-0.8); Eosinophils % 0.8 %; Hematocrit 44.7 % (42.0-52.0); Hemoglobin 14.8 g/dL (11.7-16.6); Lymphocytes # 1.5 10^3/uL (0.8-4.8); Lymphocytes % 21.4 %; Mean Corpuscular HGB Conc 33.1 g/dL (30.0-36.0); Mean Corpuscular Hemoglobin 30.1 pg (28.0-34.0); Mean Corpuscular Volume 90.9 fl (80-94); Mean Platelet Volume 9.8 fL (7.4-10.4); Monocytes # 0.7 10^3/uL (0.2-0.9); Monocytes % 10.3 %; Neutrophils # 4.79 10^3/uL (1.8-7.7); Neutrophils % 66.8 %; Nucleated Red Blood Cells % 0 %; Platelet Count 287 10^3/cmm (130-400); Red Blood Count 4.92 10^6/uL (4.1-5.3); Red Cell Distribution Width 12.3 % (12.1-15.1); White Blood Count 7.2 10^3/uL (4.0-10.0)
--- NOTE | 2021-09-16 05:34 | PC.NURSE ---
Pt lying in bed resting with eyes closed. Resp even and non-labored no distress or sob noted. Pt had no c/o pain or discomfort at the present time. No needs voiced. Call light in reach.
[2021-09-16 05:37] LABS: Anion Gap 12.8 (5-19); Blood Urea Nitrogen 15 mg/dL (6-20); Calcium 9.4 mg/dL (8.5-10.5); Carbon Dioxide 25 mmol/L (22-29); Chloride 100 mmol/L (98-107); Glomerular Filtration Rate 78.2 mL/min (90-130); Glucose 102 mg/dL (65-115); Osmolality Calculated 279 mOsm/kg (285-295); Potassium 3.8 mmol/L (3.5-5.1); Sodium 134 mmol/L (136-145)
--- NOTE | 2021-09-16 06:09 | XACV_ITS ---
Exam Room: [facility] Ht: 178 cm Wt: 88 kg BSA: 2.11 m2 Gender: Male : 1965 Any Known Allergies: No known allergies Exam Priority: Routine Indication(s): - Abnormal nuclear perfusion test Procedure(s): Procedure Description: Diagnostic procedure Procedure Description: PCI procedure Procedure Description: Left Heart Catheterization Procedure Description: Left ventriculography Procedure Description: Drug Eluting Coronary Stent Procedure Description: Coronary Angiography Benjamin POLK; Diagnostic Cath Status: Urgent Diagnostic Findings * Left main is a medium caliber vessel which is found to have minimal ostial narrowing of around 10%. * The left anterior descending artery is a medium caliber vessel which appears to give off an equal caliber diagonal vessel proximally. Just before its bifurcation, there was a high-grade lesion of 99%. The ostium of one of the bifurcation branches was found to have around 80% narrowing. The mid and distal LAD was found to have no significant stenotic lesions.. * The circumflex artery is a medium caliber nondominant vessel. The first obtuse marginal vessel was found to have around 50 to 60% eccentric narrowing of the mid segment. * The right coronary artery is a large dominant vessel which was found to have around 20% narrowing in the proximal segment. The PDA and the PLV branches were found to have minimal intimal irregularities. No significant stenotic lesions. PCI Status: Elective PCI LVEF Assessed: Yes PCI Indication: NSTE - ACS Interventional Findings * A guide was placed from the groin. A wire was placed down the diagonal branch. The wire was extended into one of the 2 distal branches. Initially balloon angioplasty was accomplished which did not satisfactorily remedy the lesion. Therefore, a 2.5 x 8 mm stent was placed across the lesion. The distal end of the stent was placed just at the ostium of the bifurcation. A good angiographic result was obtained. Decision for PCI with Surgical Consult: No PCI for Multi-vessel Disease: No Conclusions 1. 55-year-old white male with a history of high blood pressure and cardiac arrhythmia, presented with features of an unstable anginal symptoms. Troponin T was found to be elevated. Clinical features are consistent with a recent myocardial infarction. He had a myocardial perfusion imaging which revealed small to moderate area of ischemia, predominantly in the distribution of the left anterior descending artery. In view of his clinical presentation and the abnormal objective findings, in order to further evaluate his coronary status, a cardiac catheterization was recommended. Patient underwent left heart catheterization with left and right coronary angiogram and LV angiogram today. The findings are as follows.. 2. Minimal ostial narrowing of the left main. Left anterior descending artery gives off a similar caliber diagonal branch having a high-grade stenosis of the mid segment. High-grade lesion in the ostium of one of the bifurcation branches just distal to the stenotic area. Minimal disease in the other vessels. Normal LV ejection fraction of 55% with an LVEDP of 17 mmHg. Severe hypokinesia of the mid and apical anterior segment. 3. I reviewed and discussed the cardiac catheterization data with Dr. Kruse. It was thought to be appropriate to consider PCI of the diagonal lesions. Dr. Kruse took over further management this patient at this point. Interventional RX Recommendation: PCI w/o planned CABG Diagnostic RX Recommendation: PCI w/o planned CABG Ventriculography Ejection Fraction: 50.0 % LV EDP: 17 mmHg Left Ventriculography Findings: * Gram was performed the TOPETE position. The LV cavity appears to be normal size. There was severe hypokinesia at the mid and apical anterior segments. No significant mitral valve prolapse or mitral regurgitation. No filling defects were noted. LV ejection fraction was around 50%. LVEDP was 17 mmHg before the LV angiogram. It went up to 19 mmHg after the LV angiogram.. Pressures Phase:Rest AO : / ( 0 ) @ 8:16:00 AM 91 / 70 ( 82 ) @ 8:46:00 AM 124 / 73 ( 97 ) @ 8:51:00 AM 119 / 80 ( 99 ) @ 9:01:00 AM LV : 115 / 5 / 17 @ 8:50:00 AM 118 / 5 / 19 @ 8:51:00 AM 122 / 4 / 19 @ 8:51:00 AM Valves Phase:DefaultPhase AV : 0.0 @ 8:29:03 AM AV Mean Gradient: 0.0 @ 8:29:03 AM Clinical Evaluation EBL: 5mL-10mL Procedural Details Procedure Consent Obtained. Admit Source: In Patient. Current Diagnosis : Chest Pain. Pre-Procedure Time Out. Identified patient by full name and date of as verbalized by the patient/guarantor. Does the consent match the physician's order: Yes. Accurate & Complete Informed Consent: Yes. Inpatient/Outpatient History & Physical on Chart: Yes. If H&P is completed, is and addenduem needed: No; If yes, is the addendum complete: N/A. Visualize and Verify Site with Patient/Guarantor: N/A. Relevant Radiology Images available: Yes. The risks, benefits, and alternatives of sedation and/or procedure were discussed by physician. The patient agrees to continue. Procedure started. [facility] Clinical Fraility Score: 3: Managing Well. 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 Chest Pain Symptom Assessment: Typical Angina Symptoms. Cardiovascular Instability: No, stable. Correct patient, site and procedure confirmed by cath team. Current diagnosis: Chest Pain. PERRLA. Strong, equal hand knurling machine tender bilaterally. Lungs clear x 5 lobes. IV Site on Arrival: 18 gauge in the left anticubital. IV Fluids: 0.9% NaCl at KVO. 0 mL infused prior to lab asst. Pre Procedural Pulses: bilateral radial was 3+. Pre Procedural Pulses: bilateral posterior tibial was Doppled. Pre Procedural Pulses: bilateral dorsalis pedis was Doppled. Oxygen started at 3liters/min via nasal canula. right groin was prepped with chloroprep then draped in the usual sterile fashion. right radial was prepped with chloroprep then draped in the usual sterile fashion. Physician notified. Baseline sample Acquired. HR: 53 BPM. Equipment: 5F - Femoral. Heparinized Saline (2 units/mL), 1000 mL bag. Cardiac Cath Pack. Equipment: 5F - Radial. Equipment: 5F - Femoral. Equipment: 6F - Radial. Equipment: 6F - Femoral. Physician arrived. Physician scrubbed in. ACIST Manifold Kit Model BT 2000. PRE OP DIAGNOSIS: RECENT TN, ABNORMAL STRESS TEST. Immediate Pre-Procedure Time Out. Correct Patient: Yes; Correct Procedure: Yes; Correct Site: Yes; Correct Patient Position: Yes; Correct Supplies: Yes; Dried Flammable Prep: Yes; Blood Products Available: N/A;. Lidocaine 1% infiltrated to the right radial. Arterial access obtained. A 5 swedish Wallace catheter in over wire. Hand injection of the right subclavian region. Catheter removed over the wire. Unable to cross the subclavian region. Aborting radial procedure. A TR Band was successful obtaining hemostatsis at the Right Radial artery insertion site. TR band placed. Hemostasis obtained. Lidocaine 1% infiltrated to the right groin. Kit, Micropuncture. Arterial access obtained with micropuncture set. A CRD 5F JL4 Diagnostic Catheter was advanced over the wire and used for Left coronary angiography. Multiple views taken of left coronary artery. Catheter removed over the wire. A CRD 5F JR4 Diagnostic Catheter was advanced over the wire and used for Right coronary angiography. Unable to cannulate the RCA. Catheter removed over the wire. A 5 swedish AR MOD catheter in over wire. Multiple views taken of right coronary artery. Catheter removed over the wire. Dr Kruse arrived for Intervention of the Diagonal. A CRD 5F 145 Angled Pig Diagnostic Catheter was advanced over the wire and used for Ventriculography. EDP Sample taken: LV 115/5,17; HR: 56 BPM; SpO2: 97%. LV gram performed in TOPETE @ 10 mL/second for a total of 30 mL. Patient EF: Normal. EDP Sample taken: LV 118/5,19; HR: 60 BPM; SpO2: 97%. Pullback taken: LV 122/4,19; AO 124/73(97); Mean: 0mmHg, Peak to Peak: 0mmHg, SEP: 5sec/min; HR: 60 BPM; SpO2: 97%. Catheter removed over the wire. Physician review of films. Dr Alexander scrubbed out. Dr Kruse scrubbed in. 6 swedish XB 3 guide catheter was inserted over the wire. Guide seated in the LCS. Inventory is CRD 6FR XB 3 GUIDE. INVENTORY: COUGAR XT WIRE. Leroy guidewire was advanced through the guide catheter to lesion in the diaganol. Guidewire advanced across lesion. Inflation number : 1 A AB TREK 2.50X6 RX BALLOON was prepped and advanced across the 1st Diag , then inflated to 8 ALFREDO for 0:39 seconds. Inflation number: 2 The AB TREK 2.50X6 RX BALLOON was reinflated across the 1st Diag, to 10 ALFREDO for 0:33 seconds. Results checked. Balloon out. Results checked. Inflation Number : 3 A HEIDY R CHERIE 2.5X8 ANDRE -Lot Number# [id number] was prepped and advanced across the 1st Diag. The stent was deployed at 15 ALFREDO for 0:43 seconds. EXP: 04-13-22. Results checked. Results checked. Stent balloon and wire out. Results checked. Guide catheter out. Physician scrubbed out. A Suture was successful obtaining hemostatsis at the Right Femoral artery insertion site. Sheath(s) sutured into position with 2-0 silk and sterile 4x4's and Op-site applied over the site. No oozing or signs and symptoms of hematoma noted. Arterial sheath flushed and connected to tranducer and pressure bag with heparinized saline. Post Procedure: Pulses reassessed and unchanged. PERRLA. Strong, equal hand knurling machine tender bilaterally. No VTE prophylaxis required. Medication's Wasted: Lidocaine 1% = 4 mL. Medication's Wasted: Nitro = 49.8 mg. Total IV fluids: 330 mL. Fluoro: 18:09. Contrast type used: Visipaque 320 mgI/mL, 500 mL bottle. [id number]. Post-op diagnosis: CAD. Complications: None. Estimated blood loss: 5mL-10mL. Responsiveness - Normal response to verbal stimuli; alert and oriented, PERRLA. Airway - Unaffected, no intervention required; spontaneous ventilation. Circulation: W/N/L, pulses unchanged. Nausea/Vomiting: No. Procedure completed. Patient transferred by bed to ICU. Vital chart was stopped. Access Site Site: Right Radial artery Sheath Size: 6 Fr Hemostasis Method: TR Band Hemostasis Success: Successful Site: Right Femoral artery Sheath Size: 6 Fr Hemostasis Method: Suture Hemostasis Success: Successful Procedure Medications Start: 7:06 AM Stop: 7:06 AM Medication: Versed Amount: 1 mg Route: I.V. Start: 7:06 AM Stop: 7:06 AM Medication: Fentanyl Amount: 50 mcg Route: I.V. Start: 7:12 AM Stop: 7:12 AM Medication: Versed Amount: 1 mg Route: I.V. Start: 7:12 AM Stop: 7:12 AM Medication: Fentanyl Amount: 50 mcg Route: I.V. Start: 7:15 AM Stop: 7:15 AM Medication: Verapamil Amount: 5 mg Route: I.A. Start: 7:15 AM Stop: 7:15 AM Medication: Nitrogylcerin Amount: 200 mcg Route: I.A. Start: 7:16 AM Stop: 7:16 AM Medication: 0.9% Saline Amount: 250 ml Route: I.V. bolus Start: 7:18 AM Stop: 7:18 AM Medication: Versed Amount: 1 mg Route: I.V. Start: 7:18 AM Stop: 7:18 AM Medication: Fentanyl Amount: 50 mcg Route: I.V. Start: 7:32 AM Stop: 7:32 AM Medication: Versed Amount: 1 mg Route: I.V. Start: 7:32 AM Stop: 7:32 AM Medication: Fentanyl Amount: 50 mcg Route: I.V. Start: 8:00 AM Stop: 8:00 AM Medication: Heparin Amount: 5000 units Route: I.V. I, the attending physician, have reviewed and verified all procedure medications. Yes, all medications given per verbal order History/Risk Factors Hypertension: Yes Dyslipidemia: No Peripheral Arterial Disease (PAD): No Myocardial Infarction (TN): No Obesity: No Renal Disease: No Tobacco Use: Never Prior Interventions PCI: No CABG: No Valve Surgery: No Report Signatures Diagnostic Workflow Finalized by Dr Hailey Alexander MD [facility] on 09/16/2021 12:12 PM Interventional Workflow Finalized by Dr. Gaston Kruse MD on 09/16/2021 08:48 AM
[2021-09-16] MEDS: sodium chloride 0.9% 1,000 ML 50 ML IV (06:18)
[2021-09-16] MEDS: diphenhydrAMINE 50 mg Capsule PO (06:18)
--- NOTE | 2021-09-16 06:54 | W.PM.OPSUD ---
Surgery/Procedure H&P Update DATE OF PROCEDURE: September 16, 2021 DATE H&P PERFORMED: 09/15/21 H&P UPDATE INFORMATION: I have reviewed H&P completed within last 30 days, I have examined patient prior to procedure and No changes to prior documentation PREOP DIAGNOSIS: ASHD PRIMARY INDICATION FOR PROCEDURE: Recent PR/ abnormal stress test PLANNED PROCEDURE: Operation Date: 09/16/21 07:00 Proposed Procedures p Cardiac Catheterization(Left) - Hailey Alexander MD PATIENT REASSESSED PRIOR TO SEDATION, WITH NO CHANGE NOTED: Yes PHYSICAL EXAM: alert, oriented x 3, clear to auscultation bilaterally and regular rate & rhythm AIRWAY EVAL/ANESTHESIA PLAN: normal airway, see other exam findings, ASA I, ASA II, Monitored Anesthesia, Local Anesthesia, Risks, benefits & alternatives of sedation and/or procedure discussed and Patient agrees to continue as planned
[2021-09-16] MEDS: losartan 50 mg Tablet 100 MG PO (09:41)
[2021-09-16] MEDS: pantoprazole DR 40 mg Tablet 20 MG PO (09:42)
[2021-09-16] MEDS: clopidogrel 75 mg Tablet PO (09:42)
[2021-09-16] MEDS: escitalopram 10 mg Tablet PO (09:43)
[2021-09-16] MEDS: fentaNYL 50 mcg/mL INJ 2mL IVP (11:10)
--- NOTE | 2021-09-16 11:54 | P.PN_ITS ---
Subjective Subjective: Patient remained pain-free through the night. He underwent a cardiac catheterization this morning. He was found to have high-grade lesion in the diagonal branch of the left anterior descending artery. Also had a mild to moderate disease in the circumflex artery and minimal plaque buildup in the right coronary artery. Underwent a PCI of the diagonal lesion by Dr. Murillo Vitals/I&O/Wt Last Vital Signs Temp 98.2 F 09/16/21 11:28 Pulse 63 09/16/21 11:28 Resp 16 09/16/21 11:28 BP 126/89 09/16/21 11:28 Pulse Ox 99 09/16/21 11:28 09/15/21 09/16/21 09/16/21 22:59 06:59 14:59 Intake Total 336 / 1296 0 / 1296 Balance 336 / 1296 0 / 1296 Weight last 48 hrs Weight 195 lb 9.6 oz Weight 195 lb Physical Exam Narrative: GENERAL: The patient is alert and oriented times three. Not in any acute distress. HEENT: No significant pallor, icterus or lymphadenopathy. NECK: Trachea appears to be central. No masses noted. No JVD or thyromegaly appreciated. No carotid bruit. RESPIRATORY: Chest is symmetrical. No intercostals muscle retraction or any accessory muscle activation. There is no chest wall tenderness. Breath sounds are heard bilaterally. No rales or rhonchi heard. No evidence of any c onsolidation. BREASTS: Deferred. HEART: The PMI is in the 5th left intercostals space just inside the midclavicular line. No palpable precordial events. S1 and S2 are normal. No S3 or S4 heard. No pericardial rub or any click heard. ABDOMEN: No vessel pulsations or distention. No tenderness. No organomegaly appreciated. No abdominal bruit. Bowel sounds are normally heard. : Deferred. RECTAL: Deferred. LYMPHATIC: No lymphadenopathy noted in the neck or groin. EXTREMITIES: No edema or cyanosis. No clubbing. The arterial puncture site at the right wrist and groin have no hematoma or bleeding. MUSCULOSKELETAL: No acute joint deformities or swelling SKIN: Some ecchymosis in the upper extremity from IV access NEUROPSYCHIATRIC: The patient is alert and oriented x3. Appears to be in a good mood. The higher functions are grossly within normal limits. No tremors or rigidity noted. Data : 09/16/21 04:35 09/16/21 04:35 A&P Assessment and plan (1) Lateral wall myocardial infarction: The cardiac catheterization revealed high-grade lesions in the diagonal branch of the left anterior sending artery. Patient underwent PCI of these lesions. Currently remained stable. He may continue on the current medication. Because of his bradycardia with the metoprolol 25 mg, the dose was cut back to 12.5 twice daily. Status: Acute (2) Benign essential HTN: The blood pressure is a stage II. We will continue optimizing the antihypertensive medications. Status: Acute (3) Ventricular arrhythmia: May continue the beta-ginny in the Magtab. Status: Acute (4) Dyslipidemia: May continue on the current medications. Status: Acute Plan If the patient continues remain stable, may be discharged home tomorrow. Dr. 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
--- NOTE | 2021-09-16 12:57 | PC.NURSE ---
1130 Am- sheath removal Explained procedure to pt. Premedicated w/fentanyl as ordered prior to sheath removal. 6 Fr. sheath removed in right femoral artery. Manual pressure held for 20 mins. Hemostasis achieved. no hematoma, swelling or bleeding. Pedal pulses are palpable +3. Sheath cath tip intact. Access site covered with dressing. Acitivity restrictions discussed to pt and to notify nurse for any swelling, pressure, unusual pain or wetness. Pt verbalizes understanding.
[2021-09-16] MEDS: metoprolol tartrate 25 mg Tablet 12.5 MG PO ×2 (13:33→20:31)
[2021-09-16] MEDS: atorvastatin 40 mg Tablet PO (20:32)
[2021-09-17] VITALS: BP 135/90; PULSE 53; RESP 21; O2SAT 90
--- NOTE | 2021-09-17 00:50 | PC.NURSE ---
Pt lying in bed resting with eyes closed. Pt resp even and non-labored no distress or sob noted. Pt had no c/o pain or discomfort at the present time. Drsg to groin dry and intact no swelling or hematoma noted. No needs voiced at the present time. Call light in reach. at bedside. Will continue to monitor.
[2021-09-17 04:00] VITALS: BP 123/86; PULSE 61; RESP 22
[2021-09-17 04:23] LABS: Basophils % 0.5 %; Eosinophils # 0.1 10^3/uL (0.0-0.8); Eosinophils % 1.4 %; Hematocrit 42.3 % (42.0-52.0); Hemoglobin 13.9 g/dL (11.7-16.6); Lymphocytes # 1.7 10^3/uL (0.8-4.8); Lymphocytes % 21.7 %; Mean Corpuscular HGB Conc 32.9 g/dL (30.0-36.0); Mean Corpuscular Hemoglobin 30.3 pg (28.0-34.0); Mean Corpuscular Volume 92.4 fl (80-94); Monocytes # 0.9 10^3/uL (0.2-0.9); Monocytes % 11.2 %; Neutrophils # 5.02 10^3/uL (1.8-7.7); Neutrophils % 64.9 %; Nucleated Red Blood Cells % 0 %; Platelet Count 265 10^3/cmm (130-400); Red Blood Count 4.58 10^6/uL (4.1-5.3); Red Cell Distribution Width 12.5 % (12.1-15.1); White Blood Count 7.7 10^3/uL (4.0-10.0)
[2021-09-17 04:55] LABS: Blood Urea Nitrogen 16 mg/dL (6-20); Calcium 9.5 mg/dL (8.5-10.5); Carbon Dioxide 25 mmol/L (22-29); Chloride 99 mmol/L (98-107); Glucose 90 mg/dL (65-115); Osmolality Calculated 275 mOsm/kg (285-295); Sodium 132 mmol/L (136-145)
[2021-09-17 06:00] VITALS: PULSE 61
[2021-09-17] MEDS: pantoprazole DR 40 mg Tablet 20 MG PO (08:10)
[2021-09-17 09:26] VITALS: BP 144/103; PULSE 79; RESP 21; O2SAT 93
[2021-09-17] MEDS: losartan 50 mg Tablet 100 MG PO (09:29)
[2021-09-17] MEDS: clopidogrel 75 mg Tablet PO (09:30)
[2021-09-17] MEDS: escitalopram 10 mg Tablet PO (09:30)
[2021-09-17] MEDS: aspirin 81 mg EC Tablet PO (09:30)
[2021-09-17] MEDS: metoprolol tartrate 25 mg Tablet 12.5 MG PO (09:30)
--- NOTE | 2021-09-17 10:10 | P.PN_ITS ---
Subjective Subjective: Andrew underwent coronary angiography yesterday after a stress test was abnormal. He had a fairly large diagonal branch which branched upon itself. This had a lesion just proximal to the branch point. We put a stent in and we were able to protect both distal branches. He had no other significant disease other than some minor areas of narrowing in the right and the circumflex marginal branch. He has done well. He is very talkative today and has multiple questions. Vitals/I&O/Wt Last Vital Signs Temp 99.5 F 09/16/21 16:00 Pulse 79 09/17/21 09:26 Resp 21 H 09/17/21 09:26 BP 144/103 09/17/21 09:26 Pulse Ox 93 09/17/21 09:26 09/16/21 09/17/21 09/17/21 22:59 06:59 14:59 Intake Total 460 / 820 100 / 920 236 / 236 Balance 460 / 620 100 / 720 236 / 236 Physical Exam Narrative: GENERAL: In general he looks and feels well HEENT: Exam within normal limits. NECK: Supple without jugular vein distention. The carotid upstroke is normal without bruits. BACK: Exam normal. LUNGS: Clear. HEART: Regular rate and rhythm. ABDOMEN: Benign without organomegaly or tenderness. EXTREMITIES: No edema. There were 2 entry sites 1 in the right radial and the other the right common femoral area. Both are flat, dry without hematoma or bleeding. NEUROLOGIC: Exam normal. SKIN: Unremarkable. Data : 09/17/21 03:33 09/17/21 03:33 A&P Assessment and plan (1) Dyslipidemia: Status: Acute (2) Lateral wall myocardial infarction: Status: Acute (3) Bigeminy: Status: Acute (4) HTN (hypertension): Status: Acute (5) Non-ST elevation (NSTEMI) myocardial infarction: Status: Acute (6) Benign essential HTN: Status: Acute Plan I spent a lot of time talking to his and the patient. They had multiple questions which I answered. He may go home today. I gave him instructions on how to manage the right radial area in his groin. No lifting over 5 pounds for 2 days. 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 He should go home on metoprolol tartrate 12.5 mg twice a day. He also needs a prescription for Plavix. His other medications can remain the same. He should also go home on a statin if he is tolerant of those. He is a patient of Dr. Saunders and should see our nurse practitioner Li Conti in about a week for right radial artery check and groin check and then Dr. Alexander in 6 to 8 weeks. 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
--- NOTE | 2021-09-17 10:44 | P.DS_ITS ---
Discharge Providers Date of Admission: 09/15/21 16:27 Date of Discharge: September 17, 2021 Attending Provider at Admission: Gurdeep Hernandez Attending Provider at Discharge: Taqueria Call MD Primary Care Provider: Farrah Matson APN Diagnoses at Discharge Discharge Diagnosis (1) Dyslipidemia: Status: Acute (2) Lateral wall myocardial infarction: Status: Acute (3) Bigeminy: Status: Acute (4) HTN (hypertension): Status: Acute (5) Non-ST elevation (NSTEMI) myocardial infarction: Status: Acute (6) Benign essential HTN: Status: Acute Reason for Visit Reason for Visit: Chest Pain Hospital Course Hospital Course This is a 55-year-old male with a past medical history of hypertension, who presents [facility] due to complaints of chest pain. Patient was admitted to [facility] for chest pain, had elevated troponins with positive delta NSTEMI, received aspirin, statin, Lovenox, Plavix, underwent cardiac stress testing which was abnormal, underwent coronary angiogram status post stenting into diagonal branch, no recurrent chest pain thereafter, tolerated procedure well. He will be discharged on aspirin, Plavix, statin, low-dose beta-ginny, with close follow-up with cardiology as outpatient. Physical Exam Const: COMMON NORMALS: no acute distress and patient oriented x3 Resp: COMMON NORMALS: normal respiratory effort, No retractions, No use of accessory muscles and clear to auscultation bilaterally AUSCULTATION: clear to auscultation bilaterally Cardio: COMMON NORMALS: regular rate, regular rhythm, S1 normal heart sound present and S2 normal heart sound present RATE: regular rate RHYTHM: regular rhythm HEART SOUNDS: S1 normal heart sound present and S2 normal heart sound present GI: COMMON NORMALS: Normal to inspection, nondistended, normoactive bowel sounds present, Soft to palpation and non-tender PALPATION: Yes Soft to palpation Extremity: COMMON NORMALS: no pedal edema Neuro: COMMON NORMALS: patient oriented x3 Psych: COMMON NORMALS: mental status grossly normal Discharge Data Studies Completed and Pending Completed Studies During Hospitalization Category Date Time Status [employer]DER request for service Routine Exams 09/16/21 06:09 Completed Sestamibi Stress Test Request Routine Exams 09/15/21 08:00 Completed XR chest 1V portable [id number] Stat Exams 09/14/21 14:51 Completed NM lázaro perf SPECT r/s* [id number] Routine Nuc Med 09/15/21 21:11 Completed CV. echo complete* [id number] Routine Ultrasound 09/15/21 00:42 Completed Pending at discharge Category Date Time Status Sestamibi Stress Test Request Routine Exams 09/15/21 08:00 Stop Req Basic Metabolic Panel AM LABS Lab 09/18/21 04:00 Ordered Complete Blood Count w/Auto AM LABS Lab 09/18/21 04:00 Ordered Radiology Impressions Chest X-Ray 09/14/21 14:51 IMPRESSION: Unremarkable chest radiograph. Laboratory Results WBC 7.7 10^3/uL (4.0-10.0) 09/17/21 03:33 RBC 4.58 10^6/uL (4.1-5.3) 09/17/21 03:33 Hgb 13.9 g/dL (11.7-16.6) 09/17/21 03:33 Hct 42.3 % (42.0-52.0) 09/17/21 03:33 MCV 92.4 fl (80-94) 09/17/21 03:33 MCH 30.3 pg (28.0-34.0) 09/17/21 03:33 MCHC 32.9 g/dL (30.0-36.0) 09/17/21 03:33 RDW 12.5 % (12.1-15.1) 09/17/21 03:33 Plt Count 265 10^3/cmm (130-400) 09/17/21 03:33 MPV 10.0 fL (7.4-10.4) 09/17/21 03:33 Neut % (Auto) 64.9 % 09/17/21 03:33 Lymph % (Auto) 21.7 % 09/17/21 03:33 [place] % (Auto) 11.2 % 09/17/21 03:33 Eos % (Auto) 1.4 % 09/17/21 03:33 Baso % (Auto) 0.5 % 09/17/21 03:33 Neut # (Auto) 5.02 10^3/uL (1.8-7.7) 09/17/21 03:33 Lymph # (Auto) 1.7 10^3/uL (0.8-4.8) 09/17/21 03:33 [place] # (Auto) 0.9 10^3/uL (0.2-0.9) 09/17/21 03:33 Eos # (Auto) 0.1 10^3/uL (0.0-0.8) 09/17/21 03:33 Baso # (Auto) 0.0 10^3/uL (0.0-0.1) 09/17/21 03:33 Nucleated RBC % (auto) 0 % 09/17/21 03:33 Nucleated RBCs # 0.0 /100WBC 09/17/21 03:33 Sodium 132 mmol/L (136-145) L 09/17/21 03:33 Potassium 4.0 mmol/L (3.5-5.1) 09/17/21 03:33 Chloride 99 mmol/L (98-107) 09/17/21 03:33 Carbon Dioxide 25 mmol/L (22-29) 09/17/21 03:33 Anion Gap 12.0 (5-19) 09/17/21 03:33 BUN 16 mg/dL (6-20) 09/17/21 03:33 Creatinine 1.1 mg/dL (0.7-1.2) 09/17/21 03:33 GFR Calculation 70.0 mL/min (90-130) L 09/17/21 03:33 Glucose 90 mg/dL (65-115) 09/17/21 03:33 Calculated Osmolality 275 mOsm/kg (285-295) L 09/17/21 03:33 Calcium 9.5 mg/dL (8.5-10.5) 09/17/21 03:33 Magnesium 2.0 mg/dL (1.7-2.3) 09/14/21 21:59 Total Bilirubin 0.7 mg/dL (0.15-1.2) 09/15/21 03:39 AST 102 U/L (0-40) H 09/15/21 03:39 ALT 30 U/L (0-41) 09/15/21 03:39 Alkaline Phosphatase 46 IU/L (40-130) 09/15/21 03:39 Troponin T Baseline 36 ng/L (0-15) H 09/14/21 15:55 Troponin T 120 Minute 50.74 ng/L (0-15) H 09/14/21 17:50 Delta Troponin T 14.74 ABS# (0-10) H* 09/14/21 17:50 Troponin T Hi Sens 6Hr 178.4 ng/L (0-15) H 09/14/21 21:59 Troponin T Hi Sens 6Hr Delta 142.4 ng/L (0-12) H* 09/14/21 21:59 NT-Pro-B Natriuret Pep 98 pg/mL (0-125) 09/14/21 15:55 Total Protein 7.2 g/dL (6.6-8.7) 09/15/21 03:39 Albumin 4.6 g/dL (3.5-5.2) 09/15/21 03:39 Globulin 2.6 g/dL (1.3-4.6) 09/15/21 03:39 Triglycerides 102 mg/dL (0-150) 09/14/21 21:59 Cholesterol 248 mg/dL (0-200) H 09/14/21 21:59 LDL Cholesterol, Calc 151 mg/dL (50-129) H 09/14/21 21:59 HDL Cholesterol 77 mg/dL (60-100) 09/14/21 21:59 LDL/HDL Ratio 1.96 RATIO (0.00-3.22) 09/14/21 21:59 Cholesterol/HDL Ratio 3.22 mg/dL (1.0-5.00) 09/14/21 21:59 Lipase 33 U/L (13-60) 09/14/21 15:55 TSH 1.05 uIU/mL (0.27-4.20) 09/14/21 21:59 Vitals Last Vital Signs Temp 99.5 F 09/16/21 16:00 Pulse 79 09/17/21 09:26 Resp 21 H 09/17/21 09:26 BP 144/103 09/17/21 09:26 Pulse Ox 93 09/17/21 09:26 Discharge Plan Discharge Patient Disposition: Home Condition: Stable Prescriptions: New atorvastatin 40 mg Tablet 40 mg PO BEDTIME 30 Days Qty: 30 0RF clopidogrel 75 mg Tablet 75 mg PO DAILY 30 Days Qty: 30 0RF nitroglycerin 0.4 mg Tablet, Sublingual 0.4 mg sublingual Q5M PRN (Reason: Chest Pain) 30 Days Qty: 30 0RF metoprolol tartrate 25 mg Tablet 12.5 mg PO BID@0900,2100 30 Days Qty: 30 0RF aspirin 81 mg Tablet,Delayed Release (Dr/Ec) 81 mg PO DAILY 30 Days Qty: 30 0RF Continued acetaminophen [Tylenol Extra Strength] 500 mg tablet 500 mg PO Q6H PRN (Reason: Pain) 0RF triamterene-hydrochlorothiazid 37.5-25 mg tablet 0.5 tab PO DAILY 0RF omeprazole 20 mg capsule,delayed release(DR/EC) 20 mg PO DAILY 0RF simethicone [Gas-X] 80 mg Tablet,Chewable 160 mg PO DAILY PRN (Reason: Gastric Reflux) 0RF olmesartan 40 mg tablet 40 mg PO DAILY 0RF Zyrtec 10 mg Tablet 10 mg PO DAILY PRN (Reason: Allergic Reaction) 0RF meclizine 25 mg tablet 25 mg PO TID PRN (Reason: Dizziness) 0RF escitalopram oxalate 10 mg tablet 10 mg PO DAILY 0RF Discharge Orders: Discharge Order (Routine); Ordered 09/17/21 Ordered By: Taqueria Call Referrals: Hailey Alexander MD [Physician] - 6 Weeks Li Graves FNP [Nurse Practitioner] - 1 week Matson,HILARIO Yan [Primary Care Provider] - Discharge Diet: Cardiac Discharge Activity: Resume usual activity Patient Instructions: Opioid Safety Activity Restrictions/Additional Instructions: -If you have recurrent chest pain please go to the emergency room -No heavy lifting above 5 pounds for 2 days -Slowly graded exercise/increase in activity -Take medications as prescribed -Take aspirin, Plavix, statin -Follow-up with Li graves in 1 week Discharge Attestations Time Spent in Discharge Care*: less than 30 min Quality Metrics Clinical Quality Measures [ Acute Myocardial Infaction { Clinical Trial Participant: No; Contraindication to aspirin: None; Aspirin prescribed; Contraindication to statin: None; Statin prescribed; Contraindication to PCI: None; PCI performed;}] Coding Level of Care Code Acute g [facility] note Diagnoses Dyslipidemia E78.5 Lateral wall myocardial infarction I21.29 Bigeminy I49.8 HTN (hypertension) I10 Non-ST elevation (NSTEMI) myocardial infarction I21.4 Benign essential HTN I10
[2021-09-17 11:40] VITALS: BP 150/92; PULSE 72; RESP 14; TEMP 36.8; O2SAT 94
[2021-09-17 12:00] VITALS: BP 150/90; PULSE 62; PULSE 79; RESP 14; O2SAT 94
--- NOTE | 2021-09-17 14:47 | PC.NURSE ---
Discharge Note Patient discharged to home via private vehicle accompanied by family. Discharge instructions reviewed with patient and/or access service representative. Mobile pharmacy medications and/or prescriptions provided. Belongings/home medications returned. Post angiogram home care instructions discuss to pt. Pharmacy called to [facility] drug pharmacy.
== END 2021-09-17 13:25 | disposition home or self-care (01) | DRG 247 ==
LOC: ER 19:43 → CSU 20:46
PROVIDERS: Internal Medicine Cardiovascular Disease; Physician Assistant; Admitting Provider Internal Medicine; Emergency Provider Emergency Medicine; PCP Nurse Practitioner Family; Visit Provider Family Medicine
PROC: 027034Z Dilation of Coronary Artery, One Artery with Drug-eluting Intraluminal Device, Percutaneous Approach (ICD-10-PCS; 2021-09-16 07:00)
DX: I21.02 ST elevation (STEMI) myocardial infarction involving left anterior descending coronary artery (principal); I25.10 Atherosclerotic heart disease of native coronary artery without angina pectoris; F41.9 Anxiety disorder, unspecified; K21.9 Gastro-esophageal reflux disease without esophagitis; I10 Essential (primary) hypertension; Z82.49 Family history of ischemic heart disease and other diseases of the circulatory system
CPT/HCPCS: 36415; 71045; 78452; 80048; 80053; 80061; 83690; 83735; 83880; 84443; 84484; 85025; 93005; 93017; 93306; 93458; 96372; 96374; 99285; A9500; C1725; C1769; C1874; C1887; C1894; C9600; G0378; J1644; J1650; J2060; J2250; J2785; J3010; J3490; J7030; J7040; Q0163; Q9967

== ENCOUNTER → 2021-09-27 11:57 | Outpatient (BNVA) | payer OTHER, SELFPAY | PROVIDERS: PCP Nurse Practitioner Family; Visit Provider Nurse Practitioner Family | DX: I25.10 Atherosclerotic heart disease of native coronary artery without angina pectoris (principal) | CPT/HCPCS: 80048 ==

== ENCOUNTER 2021-10-08 12:35 | Emergency (ER) | payer OTHER, SELFPAY ==
[2021-10-08 12:44] VITALS: BP 184/118; PULSE 66; RESP 16; TEMP 36.6; O2SAT 98; BMI 27.3
--- NOTE | 2021-10-08 13:11 | ECG_ITS ---
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 Measurements Intervals [place] Rate: 61 P: 61 GA: 127 QRS: 79 QRSD: 110 T: 123 QT: 453 QTc: 459 Interpretive Statements SINUS RHYTHM LATERAL MYOCARDIAL INFARCTION , OF INDETERMINATE AGE [40+ ms Q WAVE AND/OR ST/T ABNORMALITY IN I/aVL/V5/V6] MODERATE T-WAVE ABNORMALITY, CONSIDER ANTERIOR ISCHEMIA [-0.1+ mV T-WAVE IN V3/V4] Compared to ECG 09/14/2021 17:45:50 T-wave abnormality now present Possible ischemia now present Ventricular premature complex(es) no longer present Left ventricular hypertrophy no longer present ST (T wave) deviation no longer present Myocardial infarct finding still present Electronically Signed On 10-09-2021 19:30:16 CDT by Mahendra Osorio M.D. [id number]
--- NOTE | 2021-10-08 13:15 | W.ED.DIZZY ---
HPI - Dizziness General: Chief Complaint: Dizziness Stated Complaint: Tingling in arms, Nausia, Dizziness, has a stent Time Seen by Provider: 10/08/21 12:51 Source: patient Mode of arrival: ambulatory Limitations: no limitations History of Present Illness: HPI Narrative: 56-year-old male presents to the emergency room with complaints of numbness in his extremities at times and what he describes as dizziness and lightheadedness. It comes and goes in waves of the last approximately 20 seconds at a time. He was seen by primary care yesterday told him some fluid in his left ear and started on Zithromax he also took some meclizine for this morning which seemed to have helped. Earlier this month he had angiography with stenting done. He has not had any chest pain recently. No shortness of breath with exertion. There is nothing seems to exacerbate or relieve the symptoms. MD elicited complaint: dizziness Pertinent past history: inner ear problems Onset (ago): day(s) Severity: mild Description: lightheadedness Exacerbating factors: nothing Relieving factors: nothing Associated symptoms: Denies change in hearing, chest pain, chills, cough, diaphoresis, ear discharge, ear pressure, fevers/chills, headache(s), malaise, nausea, nasal congestion, palpitations, rash, short of breath, syncope, tinnitus, vomiting, weakness or other Associated neuro symptoms: Reports numbness in extremities; Deny confusion, difficulty speaking, dysphagia, diplopia, extremity weakness, facial numbness, facial weakness, gait changes or visual changes Review of Systems Const: Denies: fever(s), chills, malaise or diaphoresis ENMT: Denies: ear discharge, change in hearing, tinnitus or nasal congestion Card: Denies: chest pain, palpitations or syncope Resp: Denies: dyspnea, productive cough or non-productive cough GI: Denies: nausea, vomiting or dysphagia : Denies: flank pain, dysuria, urinary frequency or urinary urgency Skin/Breast: Denies: rash or pruritus Neuro: Reports: numbness in extremities; Denies: headache(s) or confusion PFS ED PFSH: Medical History Atherosclerosis of coronary artery Atypical chest pain The EKG done today, 06/23/2019 revealed sinus rhythm with some nonspecific ST-T changes in the inferolateral leads. Otherwise unremarkable. Benign essential HTN History of hypertension Hypokalemia Hypokalemia Near syncope Vertigo Family History Father CAD (coronary artery disease) Grandmother CAD (coronary artery disease) Dementia Diabetes Grandfather Cancer Son Diabetes Denies family history of Clotting disorder Chronic kidney disease (CKD) Suicide Anesthesia complication Bleeding disorder Lung disease Stroke Social History Smoking and tobacco status: never smoked Alcohol intake: current Alcohol intake frequency: holidays/special occasions only Alcohol type: beer Lives independently: Yes Marital status: Physical Exam Const: GENERAL APPEARANCE: cooperative and comfortable ORIENTATION/CONSCIOUSNESS: Yes awake, Yes oriented to person, Yes oriented to place and Yes oriented to time HENMT: COMMON NORMALS: normocephalic, atraumatic, hearing grossly normal bilaterally, external ears normal, EAC's normal, TM's normal bilaterally, Normal nasal mucous membranes and turbinates present, moist oral mucous membranes and oropharynx normal HEAD & SCALP: normocephalic and atraumatic NOSE: Normal nasal mucous membranes and turbinates present EXTERNAL EAR: Yes external ears normal EXTERNAL AUDITORY CANAL: EAC's normal TYMPANIC MEMBRANE: TM's normal bilaterally Eye: COMMON NORMALS: Equal, round and reactive pupils present, EOMs intact bilaterally, conjunctivae normal and no scleral icterus CONJUNCTIVA: Yes conjunctivae normal PUPIL: Yes Equal, round and reactive pupils present Neck/C-Spine: COMMON NORMALS: full ROM, no lymphadenopathy, supple and no JVD Lymph: LYMPHATIC: no lymphadenopathy noted and no lymphedema noted Resp: COMMON NORMALS: normal respiratory effort, No retractions, No use of accessory muscles and clear to auscultation bilaterally AUSCULTATION: clear to auscultation bilaterally Cardio: COMMON NORMALS: no JVD, regular rate, regular rhythm and No murmurs present (Cardio) RATE: regular rate RHYTHM: regular rhythm GI: COMMON NORMALS: Soft to palpation and No hepatosplenomegaly present AUSCULTATION: Yes normoactive bowel sounds PALPATION: Yes Soft to palpation, No Tenderness to palpation present (GI), No Guarding due to palpation present (GI) and Yes No hepatosplenomegaly present Extremity: COMMON NORMALS: normal to inspection, capillary refill normal, no clubbing, cyanosis or edema, no calf tenderness and no pedal edema Neuro: SENSORIUM/ORIENTATION: Yes oriented to person, Yes oriented to place and Yes oriented to time OTHER: No localizing neurologic deficits no pronator drift leg and arm strength 5 out of 5 facial strength normal with no droop. Sensation normal bilaterally in upper and lower extremities Skin: COMMON NORMALS: no rashes or lesions noted GENERAL SKIN EXAM: no rashes or lesions noted Course Vital Signs: Vital signs: Vital Signs Temperature 97.9 F 10/08/21 12:44 Pulse Rate 69 10/08/21 16:53 Respiratory Rate 16 10/08/21 14:46 Blood Pressure 171/114 10/08/21 16:53 Pulse Oximetry 99 10/08/21 16:53 [facility] - Dizziness Medical Decision Making Patient appears to have some labyrinthitis he is feeling better at this point. He has no focal neurologic deficits. The numbness in his extremities is bilateral no other evidence that he is having any kind of lateralizing symptoms. We will go ahead and discharge him home use meclizine as needed follow-up with his primary care if has any worsening or change symptoms return. Additionally we will add amlodipine for his hypertension. Follow-up with primary care within the week regardless of symptomology to reevaluate blood pressure Medical Records I reviewed the patient's medical records. Lab Data I reviewed the patient's lab results. : 10/08/21 13:30 10/08/21 13:30 Laboratory Results WBC 8.9 10^3/uL (4.0-10.0) 10/08/21 13:30 RBC 4.84 10^6/uL (4.1-5.3) 10/08/21 13:30 Hgb 14.7 g/dL (11.7-16.6) 10/08/21 13:30 Hct 43.2 % (42.0-52.0) 10/08/21 13:30 MCV 89.3 fl (80-94) 10/08/21 13:30 MCH 30.4 pg (28.0-34.0) 10/08/21 13:30 MCHC 34.0 g/dL (30.0-36.0) 10/08/21 13:30 RDW 12.2 % (12.1-15.1) 10/08/21 13:30 Plt Count 244 10^3/cmm (130-400) 10/08/21 13:30 MPV 9.8 fL (7.4-10.4) 10/08/21 13:30 Neut % (Auto) 84.3 % 10/08/21 13:30 Lymph % (Auto) 8.9 % 10/08/21 13:30 [place] % (Auto) 6.2 % 10/08/21 13:30 Eos % (Auto) 0.1 % 10/08/21 13:30 Baso % (Auto) 0.3 % 10/08/21 13:30 Neut # (Auto) 7.45 10^3/uL (1.8-7.7) 10/08/21 13:30 Lymph # (Auto) 0.8 10^3/uL (0.8-4.8) 10/08/21 13:30 [place] # (Auto) 0.6 10^3/uL (0.2-0.9) 10/08/21 13:30 Eos # (Auto) 0.0 10^3/uL (0.0-0.8) 10/08/21 13:30 Baso # (Auto) 0.0 10^3/uL (0.0-0.1) 10/08/21 13:30 Nucleated RBC % (auto) 0 % 10/08/21 13:30 Nucleated RBCs # 0.0 /100WBC 10/08/21 13:30 Sodium 138 mmol/L (136-145) 10/08/21 13:30 Potassium 3.6 mmol/L (3.5-5.1) 10/08/21 13:30 Chloride 100 mmol/L (98-107) 10/08/21 13:30 Carbon Dioxide 27 mmol/L (22-29) 10/08/21 13:30 Anion Gap 14.6 (5-19) 10/08/21 13:30 BUN 11 mg/dL (6-20) 10/08/21 13:30 Creatinine 1.0 mg/dL (0.7-1.2) 10/08/21 13:30 GFR Calculation 77.9 mL/min (90-130) L 10/08/21 13:30 Glucose 104 mg/dL (65-115) 10/08/21 13:30 Calculated Osmolality 286 mOsm/kg (285-295) 10/08/21 13:30 Calcium 9.0 mg/dL (8.5-10.5) 10/08/21 13:30 Total Bilirubin 0.4 mg/dL (0.15-1.2) 10/08/21 13:30 AST 24 U/L (0-40) 10/08/21 13:30 ALT 35 U/L (0-41) 10/08/21 13:30 Alkaline Phosphatase 55 IU/L (40-130) 10/08/21 13:30 Troponin T Baseline 13 ng/L (0-15) 10/08/21 13:30 Troponin T 120 Minute 12.16 ng/L (0-15) 10/08/21 15:30 Delta Troponin T -0.84 ABS# (0-10) L 10/08/21 15:30 Total Protein 7.3 g/dL (6.6-8.7) 10/08/21 13:30 Albumin 4.8 g/dL (3.5-5.2) 10/08/21 13:30 Globulin 2.5 g/dL (1.3-4.6) 10/08/21 13:30 Discharge Plan Discharge Patient Disposition: Home Clinical Impression: Labyrinthitis, Peripheral neuropathy Condition: Stable Prescriptions: New amlodipine 5 mg tablet 5 mg PO DAILY Qty: 30 0RF No Action acetaminophen [Tylenol Extra Strength] 500 mg tablet 500 mg PO Q6H PRN (Reason: Pain) 0RF triamterene-hydrochlorothiazid 37.5-25 mg tablet 0.5 tab PO DAILY 0RF omeprazole 20 mg capsule,delayed release(DR/EC) 20 mg PO DAILY 0RF simethicone 80 mg Tablet,Chewable 160 mg PO DAILY PRN (Reason: Gastric Reflux) 0RF olmesartan 40 mg tablet 40 mg PO DAILY 0RF Zyrtec 10 mg Tablet 10 mg PO DAILY PRN (Reason: Allergic Reaction) 0RF meclizine 25 mg tablet 25 mg PO TID PRN (Reason: Dizziness) 0RF escitalopram oxalate 10 mg tablet 10 mg PO DAILY 0RF atorvastatin 40 mg Tablet 40 mg PO BEDTIME 30 Days Qty: 30 0RF clopidogrel 75 mg Tablet 75 mg PO DAILY 30 Days Qty: 30 0RF aspirin 81 mg Tablet,Delayed Release (Dr/Ec) 81 mg PO DAILY 30 Days Qty: 30 0RF nitroglycerin 0.4 mg Tablet, Sublingual 0.4 mg sublingual Q5M PRN (Reason: Chest Pain) 30 Days Qty: 30 0RF metoprolol tartrate 25 mg Tablet 12.5 mg PO BID@0900,2100 30 Days Qty: 30 0RF Discharge Orders: Discharge ED (Routine); Ordered 10/08/21 Ordered By: Hardik Juares Referrals: Farrah Matson APN [Primary Care Provider] - Discharge Diet: Usual diet Discharge Activity: Increase activity as tolerated Patient Instructions: Opioid Safety Activity Restrictions/Additional Instructions: Follow-up with your primary care doctor within the next week to recheck blood pressure and symptoms of peripheral neuropathy. Coding Level of Care Code ED Dry Ice Maker for Mike Fwrosio Exam Comprehensive
[2021-10-08 13:25] VITALS: BP 184/118; PULSE 66; RESP 16; O2SAT 98
[2021-10-08 13:38] LABS: Basophils % 0.3 %; Eosinophils % 0.1 %; Hematocrit 43.2 % (42.0-52.0); Hemoglobin 14.7 g/dL (11.7-16.6); Lymphocytes # 0.8 10^3/uL (0.8-4.8); Lymphocytes % 8.9 %; Mean Corpuscular Hemoglobin 30.4 pg (28.0-34.0); Mean Corpuscular Volume 89.3 fl (80-94); Mean Platelet Volume 9.8 fL (7.4-10.4); Monocytes # 0.6 10^3/uL (0.2-0.9); Monocytes % 6.2 %; Neutrophils # 7.45 10^3/uL (1.8-7.7); Neutrophils % 84.3 %; Nucleated Red Blood Cells % 0 %; Platelet Count 244 10^3/cmm (130-400); Red Blood Count 4.84 10^6/uL (4.1-5.3); Red Cell Distribution Width 12.2 % (12.1-15.1); White Blood Count 8.9 10^3/uL (4.0-10.0)
[2021-10-08 14:06] LABS: Alanine Aminotransferase 35 U/L (0-41); Albumin Level 4.8 g/dL (3.5-5.2); Alkaline Phosphatase 55 IU/L (40-130); Anion Gap 14.6 (5-19); Aspartate Amino Transferase 24 U/L (0-40); Blood Urea Nitrogen 11 mg/dL (6-20); Carbon Dioxide 27 mmol/L (22-29); Chloride 100 mmol/L (98-107); Globulin 2.5 g/dL (1.3-4.6); Glomerular Filtration Rate 77.9 mL/min (90-130); Glucose 104 mg/dL (65-115); Osmolality Calculated 286 mOsm/kg (285-295); Potassium 3.6 mmol/L (3.5-5.1); Sodium 138 mmol/L (136-145); Total Bilirubin 0.4 mg/dL (0.15-1.2); Total Protein 7.3 g/dL (6.6-8.7)
[2021-10-08 14:07] LABS: Troponin(5th) Baseline 13 ng/L (0-15)
[2021-10-08 14:46] VITALS: BP 172/102; PULSE 64; RESP 16; O2SAT 99
[2021-10-08 16:10] LABS: Troponin 5 2HR 12.16 ng/L (0-15)
[2021-10-08 16:53] VITALS: BP 171/114; PULSE 69; O2SAT 99
[2021-10-08 16:53] LABS: Troponin 5 2HR Delta -0.84 ABS# (0-10)
== END 2021-10-08 16:54 | disposition home or self-care (01) ==
PROVIDERS: Emergency Provider Family Medicine; PCP Nurse Practitioner Family
DX: H83.09 Labyrinthitis, unspecified ear (principal); G62.9 Polyneuropathy, unspecified; I10 Essential (primary) hypertension
CPT/HCPCS: 36415; 80053; 84484; 85025; 93005; 99283

== ENCOUNTER 2022-01-30 13:08 | Outpatient (CLI) | payer OTHER, SELFPAY ==
[2022-01-30 14:12] LABS: Alanine Aminotransferase 36 U/L (0-41); Albumin Level 4.4 g/dL (3.5-5.2); Alkaline Phosphatase 56 U/L (40-130); Aspartate Amino Transferase 26 U/L (0-40); Chol HDL Ratio 2.16 mg/dL (1.0-5.00); Cholesterol 123 mg/dL (0-200); Globulin 2.5 g/dL (1.3-4.6); HDL Cholesterol 57 mg/dL (60-100); LDL Cholesterol Calculated 45 mg/dL (50-129); LDL HDL Ratio 0.79 RATIO (0.00-3.22); Total Bilirubin 0.3 mg/dL (0.15-1.2); Total Protein 6.9 g/dL (6.6-8.7); Triglycerides 106 mg/dL (0-150)
== END 2022-01-30 13:09 | disposition home or self-care (01) ==
LOC: LAB 13:10
PROVIDERS: PCP Nurse Practitioner Family; Visit Provider Internal Medicine Cardiovascular Disease
DX: E78.5 Hyperlipidemia, unspecified (principal)
CPT/HCPCS: 36415; 80061; 80076